=== PATIENT | male | born 1950 | race Caucasian/White ===

== ENCOUNTER 2018-08-07 10:38 | Inpatient (IN) ==
[2018-08-07 11:41] LABS: Basophils % 0.3 % (0.0-0.8); Eosinophils # 0.1 10*3/uL (0.0-0.87); Eosinophils % 0.7 % (0.00-10.9); Hematocrit 34.1 VOL% (42.0-52.0); Hemoglobin 11.1 GM/DL (14.0-18.0); Immature Granulocytes % 0.6 %; Immature Granulocytes Absolute 0.07 #; Lymphocytes # 0.4 10*3/uL (1.4-4.0); Lymphocytes % 3.7 % (21.2-54.2); Mean Corpuscular HGB Conc 32.6 GM/DL (32-36); Mean Corpuscular Hemoglobin 29 PG (27-34); Mean Corpuscular Volume 87.9 FL (87-102); Mean Platelet Volume 10.1 FL (9.6-12.0); Monocytes # 0.8 10*3/uL (0.11-0.8); Monocytes % 7.3 % (1.7-12.7); Neutrophils # 9.6 10*3/uL (1.4-7.4); Neutrophils % 87.4 % (38.7-73.9); Platelet Count 175 T/CUMM (130-400); Red Blood Count 3.88 MC/CUMM (3.8-5.5); Red Cell Distribution Width 15.1 % (9.3-17.3)
[2018-08-07 11:52] LABS: INR 2.4
[2018-08-07 11:53] LABS: PT Patient Result 24.9 SECS
[2018-08-07 12:01] LABS: Albumin 3.2 G/DL (3.4-5.0); Bilirubin,Total 0.5 MG/DL (0.2-1.0); Calcium 8.8 MG/DL (8.5-10.1); Osmolality,Calculated 278.2 MOS/KG (273-304); Potassium 4.3 MMOL/L (3.5-5.1); Total Protein 8.1 G/DL (6.4-8.3)
[2018-08-07 12:05] LABS: Band Neutrophils 1 % (0-10); Lymphocytes 5 % (20-55); Microcytosis Slight; Ovalocytes Slight; Segmented Neutrophils 84 % (50-85); Total Cells Counted 100
[2018-08-07 12:06] LABS: Platelet Estimate Normal
[2018-08-07] MEDS ORDERED: VANCOMYCIN INJ 1,000 MG in SODIUM CHLORIDE 0.9% 250 ML IV STA (12:48)
[2018-08-07] MEDS ORDERED: ONDANSETRON 4 MG/2 ML VIAL IV PRN (12:54)
[2018-08-07] MEDS ORDERED: ACETAMINOPHEN 325 MG TABLET PO PRN (12:54)
[2018-08-07] MEDS ORDERED: DEXTROSE 50% 25 GM/50 ML VIAL IV PRN (12:54)
[2018-08-07] MEDS ORDERED: GLUCAGON 1 MG VIAL IM PRN (12:54)
[2018-08-07] MEDS: PIPERACILLIN/TAZOBACTAM 3,375 MG in SODIUM CHLORIDE 0.9% 100 ML IV SCH ×2 (15:03→23:59)
[2018-08-07] MEDS ORDERED: WARFARIN 5 MG TABLET PO SCH ×2 (15:30→18:00)
[2018-08-07] MEDS: INSULIN LISPRO 100 UNIT/ML SUBCUT SCH ×2 (16:19→20:55)
[2018-08-07] MEDS: CILOSTAZOL 50 MG TABLET PO SCH (20:53)
[2018-08-07] MEDS: CARVEDILOL 25 MG TABLET PO SCH (20:53)
[2018-08-07] MEDS: VANCOMYCIN INJ 1,750 MG in SODIUM CHLORIDE 0.9% 500 ML IV SCH (20:54)
[2018-08-07] MEDS: ROSUVASTATIN 20 MG TABLET PO SCH (20:58)
[2018-08-08 06:05] LABS: Basophils % 0.3 % (0.0-0.8); Eosinophils # 0.2 10*3/uL (0.0-0.87); Eosinophils % 2.2 % (0.00-10.9); Hematocrit 29.7 VOL% (42.0-52.0); Hemoglobin 9.6 GM/DL (14.0-18.0); Immature Granulocytes % 0.2 %; Immature Granulocytes Absolute 0.02 #; Lymphocytes # 0.6 10*3/uL (1.4-4.0); Lymphocytes % 6.5 % (21.2-54.2); Mean Corpuscular HGB Conc 32.3 GM/DL (32-36); Mean Corpuscular Hemoglobin 28 PG (27-34); Mean Corpuscular Volume 87.9 FL (87-102); Mean Platelet Volume 10.6 FL (9.6-12.0); Monocytes # 0.9 10*3/uL (0.11-0.8); Monocytes % 10.2 % (1.7-12.7); Neutrophils % 80.6 % (38.7-73.9); Platelet Count 170 T/CUMM (130-400); Red Blood Count 3.38 MC/CUMM (3.8-5.5); Red Cell Distribution Width 14.9 % (9.3-17.3); White Blood Count 8.7 T/CUMM (4-12)
[2018-08-08 06:23] LABS: INR 2.2
[2018-08-08 06:24] LABS: PT Patient Result 22.9 SECS
[2018-08-08] MEDS: LEVOTHYROXINE 75 MCG TABLET PO SCH (06:26)
[2018-08-08] MEDS: PIPERACILLIN/TAZOBACTAM 3,375 MG in SODIUM CHLORIDE 0.9% 100 ML IV SCH ×3 (06:27→22:58)
[2018-08-08 06:28] LABS: Calcium 8.6 MG/DL (8.5-10.1); Osmolality,Calculated 282.8 MOS/KG (273-304); Potassium 4.3 MMOL/L (3.5-5.1); Risk Ratio 2.87
[2018-08-08] MEDS: PANTOPRAZOLE 40 MG TABLET PO SCH (08:12)
[2018-08-08] MEDS: ASPIRIN EC 81 MG TABLET PO SCH (08:12)
[2018-08-08] MEDS: CILOSTAZOL 50 MG TABLET PO SCH (08:12)
[2018-08-08] MEDS: CARVEDILOL 25 MG TABLET PO SCH ×2 (08:12→20:18)
[2018-08-08] MEDS: INSULIN LISPRO 100 UNIT/ML SUBCUT SCH ×4 (08:13→20:18)
[2018-08-08] MEDS ORDERED: RAMIPRIL 5 MG CAPSULE PO SCH (09:00)
[2018-08-08] MEDS ORDERED: PHYTONADIONE 5 MG/5 ML ORAL.SYR PO ONE (12:51)
[2018-08-08] MEDS: SODIUM CHLORIDE 0.45% 1,000 ML IV SCH (14:25)
[2018-08-08] MEDS: ROSUVASTATIN 20 MG TABLET PO SCH (20:18)
[2018-08-08] MEDS: VANCOMYCIN INJ 1,750 MG in SODIUM CHLORIDE 0.9% 500 ML IV SCH (20:19)
[2018-08-09 04:52] LABS: Basophils % 0.5 % (0.0-0.8); Eosinophils # 0.3 10*3/uL (0.0-0.87); Eosinophils % 3.8 % (0.00-10.9); Hematocrit 29.3 VOL% (42.0-52.0); Hemoglobin 9.4 GM/DL (14.0-18.0); Immature Granulocytes % 0.5 %; Immature Granulocytes Absolute 0.04 #; Lymphocytes # 0.6 10*3/uL (1.4-4.0); Lymphocytes % 7.2 % (21.2-54.2); Mean Corpuscular HGB Conc 32.1 GM/DL (32-36); Mean Corpuscular Hemoglobin 28 PG (27-34); Mean Corpuscular Volume 87.7 FL (87-102); Mean Platelet Volume 10.2 FL (9.6-12.0); Monocytes # 0.7 10*3/uL (0.11-0.8); Monocytes % 8.1 % (1.7-12.7); Neutrophils # 6.7 10*3/uL (1.4-7.4); Neutrophils % 79.9 % (38.7-73.9); Platelet Count 168 T/CUMM (130-400); Red Blood Count 3.34 MC/CUMM (3.8-5.5); Red Cell Distribution Width 14.9 % (9.3-17.3); White Blood Count 8.4 T/CUMM (4-12)
[2018-08-09 04:56] LABS: INR 1.5; PT Patient Result 15.4 SECS
[2018-08-09 05:18] LABS: Calcium 8.5 MG/DL (8.5-10.1); Osmolality,Calculated 283.8 MOS/KG (273-304); Potassium 4.2 MMOL/L (3.5-5.1)
[2018-08-09] MEDS: LEVOTHYROXINE 75 MCG TABLET PO SCH (06:12)
[2018-08-09] MEDS: PIPERACILLIN/TAZOBACTAM 3,375 MG in SODIUM CHLORIDE 0.9% 100 ML IV SCH ×2 (06:14→14:53)
[2018-08-09] MEDS: INSULIN LISPRO 100 UNIT/ML SUBCUT SCH ×4 (07:42→20:38)
[2018-08-09] MEDS ORDERED: HYDROmorphone 2 MG/1 ML VIAL ONE ×2 (09:12→12:07)
[2018-08-09] MEDS ORDERED: MIDAZOLAM 2 MG/2 ML VIAL ONE (09:12)
[2018-08-09] MEDS ORDERED: LIDOCAINE 1% 20 ML VIAL ONE (09:12)
[2018-08-09] MEDS: PANTOPRAZOLE 40 MG TABLET PO SCH (09:31)
[2018-08-09] MEDS: CARVEDILOL 25 MG TABLET PO SCH ×2 (09:31→20:38)
[2018-08-09] MEDS: ASPIRIN EC 81 MG TABLET PO SCH (09:31)
[2018-08-09] MEDS ORDERED: HEPARIN 5,000 UNIT/1 ML VIAL ONE (09:51)
[2018-08-09] MEDS ORDERED: hydrALAZINE 20 MG/1 ML VIAL ONE ×2 (10:22→12:07)
[2018-08-09] MEDS ORDERED: ASPIRIN CHEW 81 MG TABLET PO ONE (10:33)
[2018-08-09] MEDS ORDERED: TICAGRELOR 90 MG TABLET ONE (11:04)
[2018-08-09] MEDS ORDERED: NITROGLYCERIN SL 0.4 MG TABLET SL PRN (11:31)
[2018-08-09] MEDS ORDERED: NITROGLYCERIN 2% OINT 1 INCH/GM PACK TOP ONE ×2 (12:07→12:14)
[2018-08-09] MEDS ORDERED: HYDROmorphone 2 MG/1 ML VIAL IV ONE (12:14)
[2018-08-09] MEDS ORDERED: hydrALAZINE 20 MG/1 ML VIAL IV ONE (12:14)
[2018-08-09] MEDS: SODIUM CHLORIDE 0.45% 1,000 ML IV SCH (12:22)
[2018-08-09] MEDS ORDERED: diphenhydrAMINE CAP 25 MG CAPSULE PO PRN (16:01)
[2018-08-09] MEDS: ROSUVASTATIN 20 MG TABLET PO SCH (20:37)
[2018-08-09] MEDS: TICAGRELOR 90 MG TABLET PO SCH (20:37)
[2018-08-09] MEDS: VANCOMYCIN INJ 1,750 MG in SODIUM CHLORIDE 0.9% 500 ML IV SCH (20:41)
[2018-08-10] MEDS: SODIUM CHLORIDE 0.45% 1,000 ML IV SCH ×2 (00:53→05:15)
[2018-08-10] MEDS: PIPERACILLIN/TAZOBACTAM 3,375 MG in SODIUM CHLORIDE 0.9% 100 ML IV SCH ×3 (01:15→17:20)
[2018-08-10 04:46] LABS: Basophils % 0.2 % (0.0-0.8); Eosinophils # 0.3 10*3/uL (0.0-0.87); Eosinophils % 3.3 % (0.00-10.9); Hematocrit 28.2 VOL% (42.0-52.0); Hemoglobin 8.9 GM/DL (14.0-18.0); Immature Granulocytes % 0.5 %; Immature Granulocytes Absolute 0.04 #; Lymphocytes # 0.5 10*3/uL (1.4-4.0); Lymphocytes % 6.2 % (21.2-54.2); Mean Corpuscular HGB Conc 31.6 GM/DL (32-36); Mean Corpuscular Hemoglobin 28 PG (27-34); Monocytes # 0.7 10*3/uL (0.11-0.8); Neutrophils # 6.9 10*3/uL (1.4-7.4); Neutrophils % 81.8 % (38.7-73.9); Platelet Count 172 T/CUMM (130-400); Red Blood Count 3.17 MC/CUMM (3.8-5.5); Red Cell Distribution Width 14.7 % (9.3-17.3); White Blood Count 8.4 T/CUMM (4-12)
[2018-08-10 05:06] LABS: Calcium 8.3 MG/DL (8.5-10.1); Osmolality,Calculated 283.7 MOS/KG (273-304); Potassium 4.3 MMOL/L (3.5-5.1)
[2018-08-10] MEDS: LEVOTHYROXINE 75 MCG TABLET PO SCH (06:42)
[2018-08-10] MEDS: INSULIN LISPRO 100 UNIT/ML SUBCUT SCH ×4 (08:18→21:01)
[2018-08-10] MEDS: CARVEDILOL 25 MG TABLET PO SCH ×2 (08:19→20:58)
[2018-08-10] MEDS: ASPIRIN EC 81 MG TABLET PO SCH (09:20)
[2018-08-10] MEDS: TICAGRELOR 90 MG TABLET PO SCH ×2 (09:20→20:58)
[2018-08-10] MEDS: PANTOPRAZOLE 40 MG TABLET PO SCH (09:23)
[2018-08-10] MEDS ORDERED: BUPIVACAINE 0.5% 50 ML VIAL ONE (11:40)
[2018-08-10] MEDS ORDERED: HYDROmorphone 2 MG/1 ML VIAL IV PRN (12:48)
[2018-08-10] MEDS ORDERED: PROPOFOL 200 MG/20 ML VIAL IV ONE (12:53)
[2018-08-10] MEDS ORDERED: ETOMIDATE 40 MG/20 ML VIAL IV ONE (12:54)
[2018-08-10] MEDS ORDERED: SEVOFLURANE 1 UNIT/15 MINUTE INH ONE (12:54)
[2018-08-10] MEDS ORDERED: fentaNYL 100 MCG/2 ML VIAL ONE (12:54)
[2018-08-10] MEDS ORDERED: ONDANSETRON 4 MG/2 ML VIAL ONE (12:54)
[2018-08-10] MEDS: ROSUVASTATIN 20 MG TABLET PO SCH (20:58)
[2018-08-10] MEDS: INSULIN GLARGINE 100 UNIT/ML SUBCUT SCH (20:58)
[2018-08-10] MEDS: VANCOMYCIN INJ 1,750 MG in SODIUM CHLORIDE 0.9% 500 ML IV SCH (21:25)
[2018-08-11] MEDS: SODIUM CHLORIDE 0.45% 1,000 ML IV SCH ×2 (02:34→10:36)
[2018-08-11] MEDS: PIPERACILLIN/TAZOBACTAM 3,375 MG in SODIUM CHLORIDE 0.9% 100 ML IV SCH ×3 (02:35→18:45)
[2018-08-11 05:07] LABS: Basophils # 0.1 10*3/uL (0.0-0.2); Basophils % 0.6 % (0.0-0.8); Eosinophils # 0.4 10*3/uL (0.0-0.87); Eosinophils % 4.2 % (0.00-10.9); Hemoglobin 8.8 GM/DL (14.0-18.0); Immature Granulocytes % 0.3 %; Immature Granulocytes Absolute 0.03 #; Lymphocytes # 0.7 10*3/uL (1.4-4.0); Lymphocytes % 7.3 % (21.2-54.2); Mean Corpuscular HGB Conc 31.4 GM/DL (32-36); Mean Corpuscular Hemoglobin 28 PG (27-34); Mean Corpuscular Volume 89.7 FL (87-102); Mean Platelet Volume 10.1 FL (9.6-12.0); Monocytes # 0.8 10*3/uL (0.11-0.8); Monocytes % 9.2 % (1.7-12.7); Neutrophils # 7.1 10*3/uL (1.4-7.4); Neutrophils % 78.4 % (38.7-73.9); Platelet Count 179 T/CUMM (130-400); Red Blood Count 3.12 MC/CUMM (3.8-5.5); Red Cell Distribution Width 14.6 % (9.3-17.3); White Blood Count 9.1 T/CUMM (4-12)
[2018-08-11 05:31] LABS: Calcium 8.1 MG/DL (8.5-10.1); Osmolality,Calculated 284.5 MOS/KG (273-304); Potassium 4.1 MMOL/L (3.5-5.1)
[2018-08-11 05:35] LABS: % Iron Saturation 25.5 % (18-50); Ferritin 1162.6 ng/ml (26-388)
[2018-08-11 05:44] LABS: INR 1.2
[2018-08-11 06:56] LABS: Sedimentation Rate-Westergren 122 MM/HR (0-20)
[2018-08-11] MEDS: LEVOTHYROXINE 75 MCG TABLET PO SCH (07:05)
[2018-08-11] MEDS ORDERED: ASPIRIN EC 81 MG TABLET PO SCH (09:00)
[2018-08-11 10:04] LABS: Folate 8.7 NG/ML (5.4-24.0); Vitamin B12 501 PG/ML (211-911)
[2018-08-11 10:16] LABS: Hemoglobin A1 (Alkaline) 97.7 % (96.5-98.5); Hemoglobin A2 (Alkaline) 2.3 % (1.5-3.5)
[2018-08-11] MEDS: TICAGRELOR 90 MG TABLET PO SCH ×2 (10:27→21:25)
[2018-08-11] MEDS: PANTOPRAZOLE 40 MG TABLET PO SCH (10:27)
[2018-08-11] MEDS: RAMIPRIL 2.5 MG CAPSULE PO SCH (10:27)
[2018-08-11] MEDS: CARVEDILOL 25 MG TABLET PO SCH ×2 (10:28→21:25)
[2018-08-11] MEDS: INSULIN LISPRO 100 UNIT/ML SUBCUT SCH ×4 (10:28→21:25)
[2018-08-11] MEDS: SODIUM HYPOCHLORITE 0.25% IRRIG 473 ML BOTTLE TOP SCH (10:28)
[2018-08-11] MEDS: VANCOMYCIN INJ 1,750 MG in SODIUM CHLORIDE 0.9% 500 ML IV SCH (16:32)
[2018-08-11] MEDS: ASPIRIN CHEW 81 MG TABLET PO SCH (16:32)
[2018-08-11] MEDS ORDERED: WARFARIN 7.5 MG TABLET PO SCH ×2 (18:00)
[2018-08-11] MEDS: INSULIN GLARGINE 100 UNIT/ML SUBCUT SCH (21:24)
[2018-08-11] MEDS: ROSUVASTATIN 20 MG TABLET PO SCH (21:25)
[2018-08-12] MEDS: PIPERACILLIN/TAZOBACTAM 3,375 MG in SODIUM CHLORIDE 0.9% 100 ML IV SCH ×3 (03:15→17:29)
[2018-08-12 05:49] LABS: Basophils # 0.1 10*3/uL (0.0-0.2); Basophils % 0.6 % (0.0-0.8); Eosinophils # 0.3 10*3/uL (0.0-0.87); Eosinophils % 4.3 % (0.00-10.9); Hematocrit 28.1 VOL% (42.0-52.0); Immature Granulocytes % 0.5 %; Immature Granulocytes Absolute 0.04 #; Lymphocytes # 0.5 10*3/uL (1.4-4.0); Mean Corpuscular Hemoglobin 28 PG (27-34); Mean Corpuscular Volume 88.1 FL (87-102); Monocytes # 0.7 10*3/uL (0.11-0.8); Monocytes % 9.1 % (1.7-12.7); Neutrophils % 78.5 % (38.7-73.9); Platelet Count 184 T/CUMM (130-400); Red Blood Count 3.19 MC/CUMM (3.8-5.5); Red Cell Distribution Width 14.6 % (9.3-17.3); White Blood Count 7.7 T/CUMM (4-12)
[2018-08-12 06:04] LABS: Calcium 8.3 MG/DL (8.5-10.1); Osmolality,Calculated 284.4 MOS/KG (273-304); Potassium 3.7 MMOL/L (3.5-5.1)
[2018-08-12 06:05] LABS: INR 1.2; PT Patient Result 12.7 SECS
[2018-08-12] MEDS: LEVOTHYROXINE 75 MCG TABLET PO SCH (06:44)
[2018-08-12] MEDS: ASPIRIN CHEW 81 MG TABLET PO SCH (09:48)
[2018-08-12] MEDS: PANTOPRAZOLE 40 MG TABLET PO SCH (09:48)
[2018-08-12] MEDS: CARVEDILOL 25 MG TABLET PO SCH ×2 (09:48→21:02)
[2018-08-12] MEDS: VANCOMYCIN INJ 1,750 MG in SODIUM CHLORIDE 0.9% 500 ML IV SCH (09:48)
[2018-08-12] MEDS: RAMIPRIL 2.5 MG CAPSULE PO SCH (09:48)
[2018-08-12] MEDS: TICAGRELOR 90 MG TABLET PO SCH ×2 (09:48→21:02)
[2018-08-12] MEDS: INSULIN LISPRO 100 UNIT/ML SUBCUT SCH ×4 (09:49→23:41)
[2018-08-12] MEDS: SODIUM HYPOCHLORITE 0.25% IRRIG 473 ML BOTTLE TOP SCH (09:49)
[2018-08-12] MEDS: WARFARIN 5 MG TABLET PO SCH (17:37)
[2018-08-12] MEDS: ROSUVASTATIN 20 MG TABLET PO SCH (21:02)
[2018-08-12] MEDS: INSULIN GLARGINE 100 UNIT/ML SUBCUT SCH (23:41)
[2018-08-13] MEDS: PIPERACILLIN/TAZOBACTAM 3,375 MG in SODIUM CHLORIDE 0.9% 100 ML IV SCH ×3 (03:24→17:46)
[2018-08-13 05:18] LABS: INR 1.4; PT Patient Result 14.2 SECS
[2018-08-13 05:25] LABS: Calcium 8.5 MG/DL (8.5-10.1); Osmolality,Calculated 285.3 MOS/KG (273-304); Potassium 3.7 MMOL/L (3.5-5.1)
[2018-08-13] MEDS: VANCOMYCIN INJ 1,750 MG in SODIUM CHLORIDE 0.9% 500 ML IV SCH ×2 (05:43→23:26)
[2018-08-13] MEDS: LEVOTHYROXINE 75 MCG TABLET PO SCH (06:12)
[2018-08-13] MEDS: INSULIN LISPRO 100 UNIT/ML SUBCUT SCH ×4 (07:37→21:17)
[2018-08-13] MEDS: RAMIPRIL 2.5 MG CAPSULE PO SCH (08:36)
[2018-08-13] MEDS: PANTOPRAZOLE 40 MG TABLET PO SCH (08:36)
[2018-08-13] MEDS: CARVEDILOL 25 MG TABLET PO SCH ×2 (08:36→21:16)
[2018-08-13] MEDS: TICAGRELOR 90 MG TABLET PO SCH ×2 (08:37→21:16)
[2018-08-13] MEDS: SODIUM HYPOCHLORITE 0.25% IRRIG 473 ML BOTTLE TOP SCH (11:19)
[2018-08-13] MEDS: WARFARIN 5 MG TABLET PO SCH (17:06)
[2018-08-13] MEDS: ROSUVASTATIN 20 MG TABLET PO SCH (21:17)
[2018-08-13] MEDS: INSULIN GLARGINE 100 UNIT/ML SUBCUT SCH (21:17)
[2018-08-14] MEDS: PIPERACILLIN/TAZOBACTAM 3,375 MG in SODIUM CHLORIDE 0.9% 100 ML IV SCH ×3 (03:08→17:40)
[2018-08-14 05:37] LABS: INR 1.4; PT Patient Result 15.1 SECS
[2018-08-14 05:56] LABS: Calcium 8.6 MG/DL (8.5-10.1); Osmolality,Calculated 280.5 MOS/KG (273-304); Potassium 3.6 MMOL/L (3.5-5.1)
[2018-08-14] MEDS: LEVOTHYROXINE 75 MCG TABLET PO SCH (06:18)
[2018-08-14] MEDS: INSULIN LISPRO 100 UNIT/ML SUBCUT SCH ×4 (08:05→20:40)
[2018-08-14] MEDS: PANTOPRAZOLE 40 MG TABLET PO SCH (08:43)
[2018-08-14] MEDS: TICAGRELOR 90 MG TABLET PO SCH ×2 (08:43→20:38)
[2018-08-14] MEDS: CARVEDILOL 25 MG TABLET PO SCH ×2 (08:43→20:38)
[2018-08-14] MEDS: RAMIPRIL 2.5 MG CAPSULE PO SCH (08:44)
[2018-08-14] MEDS: SODIUM HYPOCHLORITE 0.25% IRRIG 473 ML BOTTLE TOP SCH (08:44)
[2018-08-14] MEDS: COLLAGENASE OINT 30 GM TUBE TOP SCH (10:00)
[2018-08-14] MEDS: WARFARIN 5 MG TABLET PO SCH (17:59)
[2018-08-14] MEDS: ROSUVASTATIN 20 MG TABLET PO SCH (20:38)
[2018-08-14] MEDS: INSULIN GLARGINE 100 UNIT/ML SUBCUT SCH (20:40)
[2018-08-15] MEDS: PIPERACILLIN/TAZOBACTAM 3,375 MG in SODIUM CHLORIDE 0.9% 100 ML IV SCH ×3 (02:49→13:06)
[2018-08-15] MEDS: LEVOTHYROXINE 75 MCG TABLET PO SCH (06:31)
[2018-08-15] MEDS: INSULIN LISPRO 100 UNIT/ML SUBCUT SCH ×2 (08:20→13:06)
[2018-08-15] MEDS ORDERED: VANCOMYCIN INJ 1,750 MG in SODIUM CHLORIDE 0.9% 500 ML IV SCH (09:00)
[2018-08-15] MEDS: RAMIPRIL 2.5 MG CAPSULE PO SCH (09:14)
[2018-08-15] MEDS: PANTOPRAZOLE 40 MG TABLET PO SCH (09:15)
[2018-08-15] MEDS: TICAGRELOR 90 MG TABLET PO SCH (09:15)
[2018-08-15] MEDS: CARVEDILOL 25 MG TABLET PO SCH (09:15)
[2018-08-15 12:15] VITALS: BP 151/88
[2018-08-15] MEDS: COLLAGENASE OINT 30 GM TUBE TOP SCH (12:30)
[2018-08-15] MEDS: SODIUM HYPOCHLORITE 0.25% IRRIG 473 ML BOTTLE TOP SCH (12:30)
== END 2018-08-15 13:45 | disposition home health service (06) | DRG 240 ==
LOC: UNDODISIN → N.ED 10:38 → SUATTDRO 12:54 → N.EDINP 12:54 → N.3E 13:45
PROVIDERS: ADMIT Hospitalist; ATTEND Internal Medicine

== ENCOUNTER 2018-08-16 08:54 | Inpatient (IN) ==
[2018-08-16] MEDS ORDERED: SODIUM CHLORIDE 0.9% 1,000 ML IV STA (09:31)
[2018-08-16 10:24] LABS: Basophils # 0.1 10*3/uL (0.0-0.2); Basophils % 0.5 % (0.0-0.8); Eosinophils # 0.1 10*3/uL (0.0-0.87); Eosinophils % 1.1 % (0.00-10.9); Hematocrit 31.4 VOL% (42.0-52.0); Hemoglobin 9.9 GM/DL (14.0-18.0); Immature Granulocytes % 0.6 %; Immature Granulocytes Absolute 0.06 #; Lymphocytes # 0.5 10*3/uL (1.4-4.0); Lymphocytes % 4.3 % (21.2-54.2); Mean Corpuscular HGB Conc 31.5 GM/DL (32-36); Mean Corpuscular Hemoglobin 28 PG (27-34); Mean Corpuscular Volume 89.5 FL (87-102); Mean Platelet Volume 10.3 FL (9.6-12.0); Monocytes # 0.7 10*3/uL (0.11-0.8); Monocytes % 6.1 % (1.7-12.7); Neutrophils # 9.5 10*3/uL (1.4-7.4); Neutrophils % 87.4 % (38.7-73.9); Platelet Count 187 T/CUMM (130-400); Red Blood Count 3.51 MC/CUMM (3.8-5.5); Red Cell Distribution Width 14.4 % (9.3-17.3); White Blood Count 10.9 T/CUMM (4-12)
[2018-08-16 10:41] LABS: Calcium 8.6 MG/DL (8.5-10.1); Osmolality,Calculated 291.4 MOS/KG (273-304)
[2018-08-16 10:44] LABS: Lactic Acid 1.6 MMOL/L (0.4-2.0)
[2018-08-16 10:55] LABS: Lymphocytes 3 % (20-55); Segmented Neutrophils 95 % (50-85); Total Cells Counted 100
[2018-08-16 10:56] LABS: Hypochromasia 1+; Microcytosis 1+; Ovalocytes Slight; Platelet Estimate Adequate
[2018-08-16] MEDS ORDERED: GLUCAGON 1 MG VIAL IM PRN ×2 (14:43)
[2018-08-16] MEDS ORDERED: DEXTROSE 50% 25 GM/50 ML VIAL IV PRN ×2 (14:43)
[2018-08-16] MEDS: PIPERACILLIN/TAZOBACTAM 3,375 MG in SODIUM CHLORIDE 0.9% 100 ML IV SCH (18:26)
[2018-08-16] MEDS: INSULIN REGULAR 100 UNIT/ML SUBCUT SCH ×2 (18:31→21:31)
[2018-08-16 18:53] LABS: INR 1.5; PT Patient Result 16.1 SECS
[2018-08-16] MEDS ORDERED: CARVEDILOL 12.5 MG TABLET PO SCH (21:00)
[2018-08-16] MEDS: CILOSTAZOL 50 MG TABLET PO SCH (21:29)
[2018-08-16] MEDS: INSULIN GLARGINE 100 UNIT/ML SUBCUT SCH (21:29)
[2018-08-16] MEDS: TICAGRELOR 90 MG TABLET PO SCH (21:29)
[2018-08-16] MEDS: WARFARIN 5 MG TABLET PO SCH (21:30)
[2018-08-16] MEDS: FERROUS SULFATE 325 MG TABLET PO SCH (21:30)
[2018-08-16] MEDS: CARVEDILOL 12.5 MG TABLET PO SCH (21:30)
[2018-08-16] MEDS: ROSUVASTATIN 20 MG TABLET PO SCH (21:30)
[2018-08-17] MEDS: PIPERACILLIN/TAZOBACTAM 3,375 MG in SODIUM CHLORIDE 0.9% 100 ML IV SCH ×3 (00:49→17:28)
[2018-08-17 05:48] LABS: Basophils # 0.1 10*3/uL (0.0-0.2); Basophils % 0.5 % (0.0-0.8); Eosinophils # 0.1 10*3/uL (0.0-0.87); Eosinophils % 1.4 % (0.00-10.9); Hematocrit 26.9 VOL% (42.0-52.0); Hemoglobin 8.7 GM/DL (14.0-18.0); Lymphocytes # 0.7 10*3/uL (1.4-4.0); Lymphocytes % 6.5 % (21.2-54.2); Mean Corpuscular HGB Conc 32.3 GM/DL (32-36); Mean Corpuscular Hemoglobin 29 PG (27-34); Mean Corpuscular Volume 89.1 FL (87-102); Mean Platelet Volume 10.4 FL (9.6-12.0); Monocytes # 0.8 10*3/uL (0.11-0.8); Monocytes % 7.5 % (1.7-12.7); Neutrophils # 8.3 10*3/uL (1.4-7.4); Neutrophils % 83.1 % (38.7-73.9); Platelet Count 173 T/CUMM (130-400); Red Blood Count 3.02 MC/CUMM (3.8-5.5); Red Cell Distribution Width 14.5 % (9.3-17.3)
[2018-08-17 05:58] LABS: INR 1.7; PT Patient Result 17.6 SECS
[2018-08-17 06:06] LABS: Albumin 2.7 G/DL (3.4-5.0); Bilirubin,Total 0.4 MG/DL (0.2-1.0); Calcium 8.4 MG/DL (8.5-10.1); Osmolality,Calculated 287.4 MOS/KG (273-304); Potassium 3.5 MMOL/L (3.5-5.1); Total Protein 6.6 G/DL (6.4-8.3)
[2018-08-17] MEDS: TICAGRELOR 90 MG TABLET PO SCH ×2 (09:54→22:29)
[2018-08-17] MEDS: RAMIPRIL 5 MG CAPSULE PO SCH (09:54)
[2018-08-17] MEDS: FERROUS SULFATE 325 MG TABLET PO SCH ×2 (09:54→22:30)
[2018-08-17] MEDS: ALLOPURINOL 100 MG TABLET PO SCH (09:54)
[2018-08-17] MEDS: CILOSTAZOL 50 MG TABLET PO SCH ×2 (09:54→22:29)
[2018-08-17] MEDS: CARVEDILOL 12.5 MG TABLET PO SCH ×2 (09:54→22:29)
[2018-08-17] MEDS: INSULIN REGULAR 100 UNIT/ML SUBCUT SCH ×4 (09:55→22:30)
[2018-08-17] MEDS: SODIUM HYPOCHLORITE 0.25% IRRIG 473 ML BOTTLE TOP SCH (14:28)
[2018-08-17] MEDS: COLLAGENASE OINT 30 GM TUBE TOP SCH (14:28)
[2018-08-17] MEDS: SODIUM CHLORIDE 0.45% 1,000 ML IV SCH (14:28)
[2018-08-17] MEDS ORDERED: ENOXAPARIN 120 MG/0.8 ML SYRINGE SUBCUT ONE (14:56)
[2018-08-17 16:55] LABS: Amorphous Crystals,Urine Occasional /HPF (Few); Apearance,Urine CLOUDY (Clear); Bacteria,Urine Occasional /HPF (Few); Bilirubin,Urine Negative (Negative); Blood, Urine Moderate mg/dL (Negative); Glucose,Urine (UA) Negative (Negative); Ketones,Urine Negative (Negative); Mucus,Urine Occasional /LPF (Occasional); Nitrite,Urine Negative (Negative); Protein,Urine 30 MG/DL; RBC,Urine <1 /HPF (0-4); Urine Color Yellow (Yellow); Urine Specific Gravity 1.014 (1.001-1.035); Urine Urobilinogen < 2.0 EU/DL (0.2-1.0); WBC,Urine 4 /HPF (0-6)
[2018-08-17] MEDS: WARFARIN 5 MG TABLET PO SCH (17:28)
[2018-08-17] MEDS ORDERED: WARFARIN 2.5 MG TABLET PO ONE (18:00)
[2018-08-17] MEDS: ROSUVASTATIN 20 MG TABLET PO SCH (22:29)
[2018-08-17] MEDS: INSULIN GLARGINE 100 UNIT/ML SUBCUT SCH (22:30)
[2018-08-18] MEDS: PIPERACILLIN/TAZOBACTAM 3,375 MG in SODIUM CHLORIDE 0.9% 100 ML IV SCH ×3 (00:47→17:10)
[2018-08-18 02:39] LABS: Basophils # 0.1 10*3/uL (0.0-0.2); Basophils % 0.7 % (0.0-0.8); Eosinophils # 0.2 10*3/uL (0.0-0.87); Eosinophils % 2.6 % (0.00-10.9); Hematocrit 25.5 VOL% (42.0-52.0); Hemoglobin 8.3 GM/DL (14.0-18.0); Immature Granulocytes % 0.7 %; Immature Granulocytes Absolute 0.06 #; Lymphocytes # 0.6 10*3/uL (1.4-4.0); Lymphocytes % 7.5 % (21.2-54.2); Mean Corpuscular HGB Conc 32.5 GM/DL (32-36); Mean Corpuscular Hemoglobin 29 PG (27-34); Mean Corpuscular Volume 89.2 FL (87-102); Mean Platelet Volume 10.6 FL (9.6-12.0); Monocytes # 0.8 10*3/uL (0.11-0.8); Monocytes % 8.8 % (1.7-12.7); Neutrophils # 6.8 10*3/uL (1.4-7.4); Neutrophils % 79.7 % (38.7-73.9); Platelet Count 174 T/CUMM (130-400); Red Blood Count 2.86 MC/CUMM (3.8-5.5); Red Cell Distribution Width 14.4 % (9.3-17.3); White Blood Count 8.5 T/CUMM (4-12)
[2018-08-18 02:48] LABS: PT Patient Result 20.5 SECS
[2018-08-18 03:15] LABS: Calcium 8.2 MG/DL (8.5-10.1); Osmolality,Calculated 286.4 MOS/KG (273-304); Potassium 3.3 MMOL/L (3.5-5.1)
[2018-08-18] MEDS: INSULIN REGULAR 100 UNIT/ML SUBCUT SCH ×4 (07:30→22:01)
[2018-08-18] MEDS ORDERED: POTASSIUM CHLORIDE 20 MEQ TABLET PO ONE (08:00)
[2018-08-18] MEDS: TICAGRELOR 90 MG TABLET PO SCH ×2 (09:32→22:00)
[2018-08-18] MEDS: ALLOPURINOL 100 MG TABLET PO SCH (09:32)
[2018-08-18] MEDS: CILOSTAZOL 50 MG TABLET PO SCH ×2 (09:32→21:59)
[2018-08-18] MEDS: FERROUS SULFATE 325 MG TABLET PO SCH ×2 (09:33→22:00)
[2018-08-18] MEDS: RAMIPRIL 5 MG CAPSULE PO SCH (09:33)
[2018-08-18] MEDS: CARVEDILOL 12.5 MG TABLET PO SCH ×2 (09:33→21:59)
[2018-08-18] MEDS: COLLAGENASE OINT 30 GM TUBE TOP SCH (11:45)
[2018-08-18] MEDS: SODIUM HYPOCHLORITE 0.25% IRRIG 473 ML BOTTLE TOP SCH (11:45)
[2018-08-18] MEDS: ZINC OXIDE PASTE 113 GM TUBE TOP SCH (13:45)
[2018-08-18] MEDS ORDERED: FLUDROCORTISONE 0.1 MG TABLET PO SCH (14:00)
[2018-08-18] MEDS: POTASSIUM CHLORIDE 20 MEQ TABLET PO SCH ×2 (14:47→17:09)
[2018-08-18] MEDS ORDERED: COSYNTROPIN 0.25 MG VIAL IM ONE (16:18)
[2018-08-18] MEDS ORDERED: WARFARIN 5 MG TABLET PO SCH (18:00)
[2018-08-18] MEDS: SODIUM CHLORIDE 0.45% 1,000 ML IV SCH (18:30)
[2018-08-18] MEDS: ROSUVASTATIN 20 MG TABLET PO SCH (22:00)
[2018-08-18] MEDS: INSULIN GLARGINE 100 UNIT/ML SUBCUT SCH (22:00)
[2018-08-19] MEDS: PIPERACILLIN/TAZOBACTAM 3,375 MG in SODIUM CHLORIDE 0.9% 100 ML IV SCH ×2 (01:50→09:29)
[2018-08-19 05:50] LABS: Calcium 8.5 MG/DL (8.5-10.1); Osmolality,Calculated 291.1 MOS/KG (273-304); Potassium 3.8 MMOL/L (3.5-5.1)
[2018-08-19 05:52] LABS: INR 2.3
[2018-08-19] MEDS ORDERED: COSYNTROPIN 0.25 MG VIAL IM ONE (06:00)
[2018-08-19 06:24] LABS: PT Patient Result 23.2 SECS
[2018-08-19] MEDS: TICAGRELOR 90 MG TABLET PO SCH (09:28)
[2018-08-19] MEDS: CARVEDILOL 12.5 MG TABLET PO SCH (09:28)
[2018-08-19] MEDS: CILOSTAZOL 50 MG TABLET PO SCH (09:28)
[2018-08-19] MEDS: FERROUS SULFATE 325 MG TABLET PO SCH (09:28)
[2018-08-19] MEDS: ALLOPURINOL 100 MG TABLET PO SCH (09:28)
[2018-08-19] MEDS: INSULIN REGULAR 100 UNIT/ML SUBCUT SCH ×2 (09:32→14:25)
[2018-08-19] MEDS: SODIUM HYPOCHLORITE 0.25% IRRIG 473 ML BOTTLE TOP SCH (11:00)
[2018-08-19] MEDS: COLLAGENASE OINT 30 GM TUBE TOP SCH (11:00)
[2018-08-19] MEDS: ZINC OXIDE PASTE 113 GM TUBE TOP SCH ×2 (11:02)
[2018-08-19 13:07] VITALS: BP 119/58
== END 2018-08-19 13:59 | disposition swing bed (61) | DRG 312 ==
LOC: EDUNIT# → EDBD → N.ED 08:54 → OBSVTOIN 12:31 → N.EDINP 12:31 → SUATTDRO 12:31 → INTOOBSV 12:31 → N.2W 15:53 → N.TELES 17:55
PROVIDERS: ADMIT Internal Medicine; ATTEND Hospitalist

== ENCOUNTER 2019-05-14 07:49 | Inpatient (IN) ==
[2019-05-09 15:40] LABS: Basophils % 0.6 % (0.0-0.8); Eosinophils # 0.2 10*3/uL (0.0-0.87); Eosinophils % 3.7 % (0.00-10.9); Hemoglobin 9.7 GM/DL (14.0-18.0); Immature Granulocytes % 0.2 %; Immature Granulocytes Absolute 0.01 #; Lymphocytes # 0.6 10*3/uL (1.4-4.0); Lymphocytes % 11.4 % (21.2-54.2); Mean Corpuscular HGB Conc 31.3 GM/DL (32-36); Mean Platelet Volume 9.9 FL (9.6-12.0); Monocytes % 8.7 % (1.7-12.7); Neutrophils % 75.4 % (38.7-73.9); Platelet Count 127 T/CUMM (130-400); Red Blood Count 3.37 MC/CUMM (3.8-5.5); Red Cell Distribution Width 16.4 % (9.3-17.3); White Blood Count 4.9 T/CUMM (4-12)
[2019-05-09 15:57] LABS: INR 2.1
[2019-05-09 16:03] LABS: PT Patient Result 22.7 SECS
[2019-05-09 16:04] LABS: Alanine Aminotransferase 20 U/L (16-61); Albumin 3.7 G/DL (3.4-5.0); Alkaline Phosphatase 67 U/L (45-117); Aspartate Amino Transferase 17 U/L (0-37); Bilirubin,Total < 0.39 MG/DL (0.2-1.0); Blood Urea Nitrogen 46 MG/DL (7-18); Calcium 8.7 MG/DL (8.5-10.1); Glucose 92 MG/DL (74-106); Osmolality,Calculated 288.5 MOS/KG (273-304); Total Protein 7.4 G/DL (6.4-8.3)
[~2019-05-14 07:49] MED LIST: DIAZEPAM 5 MG TABLET PO ONE; FAMOTIDINE 20 MG TABLET PO ONE; VANCOMYCIN INJ 1,000 MG in SODIUM CHLORIDE 0.9% 250 ML IV ONE
[2019-05-14 08:42] LABS: INR 1.4; PT Patient Result 14.8 SECS
[2019-05-14] MEDS ORDERED: VANCOMYCIN 1,000 MG VIAL ONE (08:45)
[2019-05-14] MEDS ORDERED: DIAZEPAM 5 MG TABLET ONE (08:46)
[2019-05-14] MEDS ORDERED: FAMOTIDINE 20 MG TABLET ONE (08:46)
[2019-05-14] MEDS: SODIUM CHLORIDE 0.9% 1,000 ML IV SCH (09:15)
[2019-05-14] MEDS ORDERED: VANCOMYCIN 500 MG VIAL ONE (09:27)
[2019-05-14] MEDS ORDERED: LIDOCAINE 1% 20 ML VIAL ONE (09:27)
[2019-05-14] MEDS ORDERED: ACETAMINOPHEN 325 MG TABLET PO PRN (10:37)
[2019-05-14] MEDS ORDERED: HYDROmorphone 2 MG/1 ML VIAL IV PRN ×2 (10:37)
[2019-05-14] MEDS ORDERED: ONDANSETRON 4 MG/2 ML VIAL IV PRN (10:37)
[2019-05-14] MEDS ORDERED: DEXTROSE 10% 25 GM/250 ML BAG IV PRN (10:44)
[2019-05-14] MEDS ORDERED: SEVOFLURANE 1 UNIT/15 MINUTE INH ONE (10:44)
[2019-05-14] MEDS ORDERED: PROPOFOL 200 MG/20 ML VIAL IV ONE (10:44)
[2019-05-14] MEDS ORDERED: MIDAZOLAM 2 MG/2 ML VIAL ONE (10:44)
[2019-05-14] MEDS ORDERED: fentaNYL 100 MCG/2 ML VIAL ONE (10:44)
[2019-05-14] MEDS ORDERED: GLUCAGON 1 MG VIAL IM PRN (10:44)
[2019-05-14] MEDS ORDERED: ACETAMINOPHEN 1,000 MG/100 ML VIAL IV ONE (10:45)
[2019-05-14] MEDS ORDERED: PHENYLEPHRINE 1 MG/10 ML SYRINGE IV ONE (10:45)
[2019-05-14] MEDS ORDERED: ePHEDrine 50 MG/ML AMP ONE (10:45)
[2019-05-14] MEDS: INSULIN REGULAR 100 UNIT/ML SUBCUT SCH ×3 (13:40→21:20)
[2019-05-14] MEDS: METOPROLOL TARTRATE 25 MG TABLET PO SCH ×2 (14:44→20:57)
[2019-05-14] MEDS ORDERED: RIVAROXABAN 20 MG TABLET PO SCH (17:00)
[2019-05-14] MEDS: FERROUS SULFATE 325 MG TABLET PO SCH (20:58)
[2019-05-14] MEDS ORDERED: INSULIN GLARGINE 100 UNIT/ML SUBCUT SCH (21:00)
[2019-05-14] MEDS ORDERED: ROSUVASTATIN 20 MG TABLET PO SCH (21:00)
[2019-05-14] MEDS ORDERED: VANCOMYCIN INJ 1,750 MG in SODIUM CHLORIDE 0.9% 500 ML IV ONE (22:00)
[2019-05-15 05:40] LABS: Basophils % 0.8 % (0.0-0.8); Eosinophils # 0.2 10*3/uL (0.0-0.87); Eosinophils % 3.7 % (0.00-10.9); Hematocrit 29.2 VOL% (42.0-52.0); Hemoglobin 8.9 GM/DL (14.0-18.0); Immature Granulocytes % 0.2 %; Immature Granulocytes Absolute 0.01 #; Lymphocytes # 0.5 10*3/uL (1.4-4.0); Lymphocytes % 10.3 % (21.2-54.2); Mean Corpuscular HGB Conc 30.5 GM/DL (32-36); Mean Corpuscular Volume 94.8 FL (87-102); Mean Platelet Volume 10.3 FL (9.6-12.0); Monocytes % 9.7 % (1.7-12.7); Neutrophils % 75.3 % (38.7-73.9); Platelet Count 129 T/CUMM (130-400); Red Blood Count 3.08 MC/CUMM (3.8-5.5); Red Cell Distribution Width 16.7 % (9.3-17.3); White Blood Count 4.9 T/CUMM (4-12)
[2019-05-15 05:55] LABS: Calcium 8.7 MG/DL (8.5-10.1); Osmolality,Calculated 290.4 MOS/KG (273-304)
[2019-05-15] MEDS ORDERED: LEVOTHYROXINE 50 MCG TABLET PO SCH (07:00)
[2019-05-15] MEDS: INSULIN REGULAR 100 UNIT/ML SUBCUT SCH ×2 (07:32→12:10)
[2019-05-15] MEDS ORDERED: ALFUZOSIN 10 MG TABLET PO SCH (09:00)
[2019-05-15] MEDS ORDERED: ASPIRIN CHEW 81 MG TABLET PO SCH (09:00)
[2019-05-15] MEDS ORDERED: ALLOPURINOL 100 MG TABLET PO SCH (09:00)
[2019-05-15] MEDS: METOPROLOL TARTRATE 25 MG TABLET PO SCH (09:58)
[2019-05-15] MEDS: SODIUM CHLORIDE 0.9% 1,000 ML IV SCH (10:46)
[2019-05-15] MEDS: FERROUS SULFATE 325 MG TABLET PO SCH (10:46)
[2019-05-15 11:30] VITALS: BP 129/73
== END 2019-05-15 12:40 | disposition home or self-care (01) | DRG 617 ==
LOC: N.OR 07:49 → N.SDSINP 07:50 → N.3E 11:33
PROVIDERS: ADMIT Surgery; ATTEND Surgery

== ENCOUNTER 2019-08-13 13:40 | Inpatient (IN) ==
[2019-08-13 15:15] LABS: Basophils % 0.6 % (0.0-0.8); Eosinophils # 0.1 10*3/uL (0.0-0.87); Immature Granulocytes % 0.4 %; Immature Granulocytes Absolute 0.03 #; Lymphocytes # 0.5 10*3/uL (1.4-4.0); Lymphocytes % 7.9 % (21.2-54.2); Mean Corpuscular HGB Conc 30.5 GM/DL (32-36); Mean Corpuscular Volume 104.2 FL (87-102); Mean Platelet Volume 10.3 FL (9.6-12.0); Monocytes % 7.6 % (1.7-12.7); Neutrophils % 82.5 % (38.7-73.9); Platelet Count 164 T/CUMM (130-400); Red Blood Count 1.92 MC/CUMM (3.8-5.5); Red Cell Distribution Width 19.1 % (9.3-17.3); White Blood Count 6.7 T/CUMM (4-12)
[2019-08-13 15:22] LABS: Hemoglobin 6.1 GM/DL (14.0-18.0)
[2019-08-13 15:27] LABS: INR 1.3; PT Patient Result 14.5 SECS (9.6-12.2); Partial Thromboplastin Time 27.1 SECS (20.8-36.0)
[2019-08-13 15:42] LABS: Alanine Aminotransferase 15 U/L (16-61); Albumin 3.7 G/DL (3.4-5.0); Alkaline Phosphatase 48 U/L (45-117); Aspartate Amino Transferase 12 U/L (0-37); Bilirubin,Total < 0.39 MG/DL (0.2-1.0); Blood Urea Nitrogen 51 MG/DL (7-18); Calcium 8.8 MG/DL (8.5-10.1); Estimated Glom Filtration Rate 37 ML/MIN; Glucose 122 MG/DL (74-106); Osmolality,Calculated 293.4 MOS/KG (273-304); Total Protein 5.9 G/DL (6.4-8.3)
[2019-08-13 15:47] LABS: % Iron Saturation 22.7 % (18-50)
[2019-08-13 15:57] LABS: Folate 11.4 NG/ML (5.4-24.0)
[2019-08-13] MEDS ORDERED: ACETAMINOPHEN 325 MG TABLET PO PRN (16:10)
[2019-08-13] MEDS ORDERED: DEXTROSE 50% 25 GM/50 ML VIAL IV PRN (16:10)
[2019-08-13] MEDS ORDERED: ONDANSETRON 4 MG/2 ML VIAL IV PRN (16:10)
[2019-08-13] MEDS ORDERED: GLUCAGON 1 MG VIAL IM PRN (16:10)
[2019-08-13] MEDS ORDERED: SODIUM CHLORIDE 0.9% 1,000 ML IV PRN (16:15)
[2019-08-13] MEDS: INSULIN REGULAR 100 UNIT/ML SUBCUT SCH ×2 (18:28→22:15)
[2019-08-13] MEDS: ROSUVASTATIN 20 MG TABLET PO SCH (22:14)
[2019-08-13] MEDS: FERROUS SULFATE 325 MG TABLET PO SCH (22:14)
[2019-08-14 05:01] LABS: Basophils % 0.3 % (0.0-0.8); Eosinophils # 0.1 10*3/uL (0.0-0.87); Eosinophils % 2.2 % (0.00-10.9); Hematocrit 22.6 VOL% (42.0-52.0); Hemoglobin 7.1 GM/DL (14.0-18.0); Immature Granulocytes % 0.3 %; Immature Granulocytes Absolute 0.02 #; Lymphocytes # 0.9 10*3/uL (1.4-4.0); Lymphocytes % 14.5 % (21.2-54.2); Mean Corpuscular HGB Conc 31.4 GM/DL (32-36); Mean Platelet Volume 10.5 FL (9.6-12.0); Monocytes % 11.1 % (1.7-12.7); Neutrophils % 71.6 % (38.7-73.9); Platelet Count 151 T/CUMM (130-400); Red Blood Count 2.26 MC/CUMM (3.8-5.5); Red Cell Distribution Width 19.4 % (9.3-17.3); White Blood Count 6.4 T/CUMM (4-12)
[2019-08-14] MEDS: LEVOTHYROXINE 50 MCG TABLET PO SCH (07:58)
[2019-08-14] MEDS: ALLOPURINOL 100 MG TABLET PO SCH (08:01)
[2019-08-14] MEDS: PANTOPRAZOLE 40 MG TABLET PO SCH (08:01)
[2019-08-14] MEDS: FERROUS SULFATE 325 MG TABLET PO SCH ×2 (08:01→20:21)
[2019-08-14] MEDS: INSULIN REGULAR 100 UNIT/ML SUBCUT SCH ×4 (08:07→20:21)
[2019-08-14] MEDS ORDERED: SODIUM CHLORIDE 0.9% 1,000 ML IV PRN (09:00)
[2019-08-14 16:10] LABS: Hemoglobin 8.5 GM/DL (14.0-18.0)
[2019-08-14] MEDS: ROSUVASTATIN 20 MG TABLET PO SCH (20:21)
[2019-08-15 04:52] LABS: Basophils % 0.5 % (0.0-0.8); Eosinophils # 0.2 10*3/uL (0.0-0.87); Eosinophils % 3.6 % (0.00-10.9); Hematocrit 24.9 VOL% (42.0-52.0); Hemoglobin 7.9 GM/DL (14.0-18.0); Immature Granulocytes % 0.3 %; Immature Granulocytes Absolute 0.02 #; Lymphocytes # 0.8 10*3/uL (1.4-4.0); Lymphocytes % 14.3 % (21.2-54.2); Mean Corpuscular HGB Conc 31.7 GM/DL (32-36); Mean Corpuscular Volume 97.3 FL (87-102); Mean Platelet Volume 10.3 FL (9.6-12.0); Monocytes % 10.7 % (1.7-12.7); Neutrophils % 70.6 % (38.7-73.9); Platelet Count 134 T/CUMM (130-400); Red Blood Count 2.56 MC/CUMM (3.8-5.5); Red Cell Distribution Width 19.4 % (9.3-17.3); White Blood Count 5.9 T/CUMM (4-12)
[2019-08-15 05:08] LABS: Calcium 8.5 MG/DL (8.5-10.1); Osmolality,Calculated 295.8 MOS/KG (273-304)
[2019-08-15] MEDS: LEVOTHYROXINE 50 MCG TABLET PO SCH (06:45)
[2019-08-15] MEDS ORDERED: LACTATED RINGERS 1,000 ML IV SCH (08:00)
[2019-08-15] MEDS ORDERED: ETOMIDATE 20 MG/10 ML VIAL IV ONE (09:00)
[2019-08-15] MEDS ORDERED: PROPOFOL 200 MG/20 ML VIAL IV ONE (09:00)
[2019-08-15] MEDS ORDERED: LIDOCAINE 2% 5 ML VIAL ONE (09:00)
[2019-08-15] MEDS: INSULIN REGULAR 100 UNIT/ML SUBCUT SCH ×4 (09:44→21:00)
[2019-08-15] MEDS: ALLOPURINOL 100 MG TABLET PO SCH (10:26)
[2019-08-15] MEDS: FERROUS SULFATE 325 MG TABLET PO SCH ×2 (10:26→21:00)
[2019-08-15] MEDS: PANTOPRAZOLE 40 MG TABLET PO SCH (10:26)
[2019-08-15] MEDS ORDERED: POLYETHYLENE GLYCOL POWDER 255 GM BOTTLE PO ONE (18:00)
[2019-08-15] MEDS: ROSUVASTATIN 20 MG TABLET PO SCH (21:00)
[2019-08-16 05:31] LABS: Basophils # 0.1 10*3/uL (0.0-0.2); Basophils % 0.9 % (0.0-0.8); Eosinophils # 0.3 10*3/uL (0.0-0.87); Eosinophils % 4.9 % (0.00-10.9); Hematocrit 25.6 VOL% (42.0-52.0); Hemoglobin 8.1 GM/DL (14.0-18.0); Immature Granulocytes % 0.4 %; Immature Granulocytes Absolute 0.03 #; Lymphocytes % 15.1 % (21.2-54.2); Mean Corpuscular HGB Conc 31.6 GM/DL (32-36); Mean Corpuscular Volume 99.6 FL (87-102); Mean Platelet Volume 9.6 FL (9.6-12.0); Monocytes % 11.7 % (1.7-12.7); Platelet Count 132 T/CUMM (130-400); Red Blood Count 2.57 MC/CUMM (3.8-5.5); White Blood Count 6.7 T/CUMM (4-12)
[2019-08-16 05:46] LABS: Calcium 8.4 MG/DL (8.5-10.1); Osmolality,Calculated 286.4 MOS/KG (273-304)
[2019-08-16 05:51] LABS: Hypochromasia 1+; Ovalocytes Slight; Platelet Estimate Normal
[2019-08-16] MEDS ORDERED: MAGNESIUM CITRATE 300 ML BOTTLE PO ONE (06:00)
[2019-08-16] MEDS: LEVOTHYROXINE 50 MCG TABLET PO SCH (06:08)
[2019-08-16] MEDS: INSULIN REGULAR 100 UNIT/ML SUBCUT SCH ×4 (08:16→21:00)
[2019-08-16] MEDS: FERROUS SULFATE 325 MG TABLET PO SCH ×2 (09:51→21:00)
[2019-08-16] MEDS: ALLOPURINOL 100 MG TABLET PO SCH (09:52)
[2019-08-16] MEDS: PANTOPRAZOLE 40 MG TABLET PO SCH (09:52)
[2019-08-16] MEDS ORDERED: PROPOFOL 200 MG/20 ML VIAL IV ONE (13:00)
[2019-08-16] MEDS ORDERED: LIDOCAINE 2% 5 ML VIAL ONE (13:00)
[2019-08-16] MEDS: ROSUVASTATIN 20 MG TABLET PO SCH (21:00)
[2019-08-17] MEDS: LEVOTHYROXINE 50 MCG TABLET PO SCH (06:08)
[2019-08-17] MEDS: INSULIN REGULAR 100 UNIT/ML SUBCUT SCH ×2 (08:10→12:00)
[2019-08-17 08:52] LABS: Basophils % 0.6 % (0.0-0.8); Eosinophils # 0.2 10*3/uL (0.0-0.87); Eosinophils % 2.8 % (0.00-10.9); Hematocrit 26.7 VOL% (42.0-52.0); Hemoglobin 8.4 GM/DL (14.0-18.0); Immature Granulocytes % 0.3 %; Immature Granulocytes Absolute 0.02 #; Lymphocytes # 0.7 10*3/uL (1.4-4.0); Lymphocytes % 10.7 % (21.2-54.2); Mean Corpuscular HGB Conc 31.5 GM/DL (32-36); Mean Corpuscular Volume 99.3 FL (87-102); Monocytes % 8.7 % (1.7-12.7); Neutrophils % 76.9 % (38.7-73.9); Platelet Count 135 T/CUMM (130-400); Red Blood Count 2.69 MC/CUMM (3.8-5.5); Red Cell Distribution Width 18.5 % (9.3-17.3); White Blood Count 6.5 T/CUMM (4-12)
[2019-08-17] MEDS: FERROUS SULFATE 325 MG TABLET PO SCH (10:06)
[2019-08-17] MEDS: PANTOPRAZOLE 40 MG TABLET PO SCH (10:07)
[2019-08-17] MEDS: ALLOPURINOL 100 MG TABLET PO SCH (10:07)
[2019-08-17 12:01] VITALS: BP 91/50
== END 2019-08-17 13:35 | disposition home or self-care (01) | DRG 813 ==
LOC: N.ED 13:40 → N.EDINP 13:40 → N.2W 16:36 → N.TELEN 16:48
PROVIDERS: ADMIT Internal Medicine Geriatric Medicine; ATTEND Internal Medicine Geriatric Medicine

== ENCOUNTER 2020-09-01 13:59 | Inpatient (IN) ==
[2020-09-01] MEDS ORDERED: GLUCAGON 1 MG VIAL IM PRN (15:59)
[2020-09-01] MEDS ORDERED: MORPHINE 4 MG/1 ML VIAL IV PRN ×2 (15:59)
[2020-09-01] MEDS ORDERED: BISACODYL 5 MG TABLET PO PRN (15:59)
[2020-09-01] MEDS ORDERED: ONDANSETRON 4 MG/2 ML VIAL IV PRN (15:59)
[2020-09-01] MEDS ORDERED: ACETAMINOPHEN 325 MG TABLET PO PRN (15:59)
[2020-09-01] MEDS ORDERED: DEXTROSE 50% 25 GM/50 ML VIAL IV PRN (15:59)
[2020-09-01] MEDS ORDERED: ALBUTEROL/IPRATROPIUM 3 ML NEB RESP TX PRN (15:59)
[2020-09-01 16:54] LABS: Basophils % 0.4 % (0.0-0.8); Eosinophils # 0.3 10*3/uL (0.0-0.87); Eosinophils % 3.6 % (0.00-10.9); Hematocrit 38.7 VOL% (42.0-52.0); Hemoglobin 12.6 GM/DL (14.0-18.0); Immature Granulocytes % 0.3 %; Immature Granulocytes Absolute 0.02 #; Lymphocytes # 0.6 10*3/uL (1.4-4.0); Lymphocytes % 7.8 % (21.2-54.2); Mean Corpuscular HGB Conc 32.6 GM/DL (32-36); Mean Corpuscular Volume 91.9 FL (87-102); Monocytes % 8.3 % (1.7-12.7); Neutrophils % 79.6 % (38.7-73.9); Platelet Count 130 T/CUMM (130-400); Red Blood Count 4.21 MC/CUMM (3.8-5.5); Red Cell Distribution Width 14.7 % (9.3-17.3)
[2020-09-01] MEDS: INSULIN LISPRO 100 UNIT/ML SUBCUT SCH ×3 (17:05→20:39)
[2020-09-01 17:07] LABS: Calcium 8.9 MG/DL (8.5-10.1); Potassium 4.5 MMOL/L (3.5-5.1)
[2020-09-01] MEDS: LACTATED RINGERS 1,000 ML IV SCH (17:24)
[2020-09-01] MEDS: PIPERACILLIN/TAZOBACTAM 3,375 MG in SODIUM CHLORIDE 0.9% 100 ML IV SCH (17:26)
[2020-09-01] MEDS: VANCOMYCIN INJ 1,750 MG in SODIUM CHLORIDE 0.9% 500 ML IV SCH (20:39)
[2020-09-02] MEDS: PIPERACILLIN/TAZOBACTAM 3,375 MG in SODIUM CHLORIDE 0.9% 100 ML IV SCH ×3 (00:04→17:08)
[2020-09-02] MEDS: LACTATED RINGERS 1,000 ML IV SCH ×2 (02:32→15:01)
[2020-09-02] MEDS: INSULIN LISPRO 100 UNIT/ML SUBCUT SCH ×4 (07:50→20:57)
[2020-09-02] MEDS: ENOXAPARIN 40 MG/0.4 ML SYRINGE SUBCUT SCH (08:58)
[2020-09-02] MEDS: PANTOPRAZOLE 40 MG TABLET PO SCH (08:59)
[2020-09-02] MEDS: VANCOMYCIN INJ 1,750 MG in SODIUM CHLORIDE 0.9% 500 ML IV SCH (20:57)
[2020-09-03] MEDS: PIPERACILLIN/TAZOBACTAM 3,375 MG in SODIUM CHLORIDE 0.9% 100 ML IV SCH (02:18)
[2020-09-03] MEDS: LACTATED RINGERS 1,000 ML IV SCH ×2 (02:25→10:09)
[2020-09-03 07:04] LABS: Calcium 8.7 MG/DL (8.5-10.1); Osmolality,Calculated 284.5 MOS/KG (273-304); Potassium 4.4 MMOL/L (3.5-5.1)
[2020-09-03 07:09] LABS: Basophils # 0.1 10*3/uL (0.0-0.2); Basophils % 1.1 % (0.0-0.8); Eosinophils # 0.3 10*3/uL (0.0-0.87); Eosinophils % 6.6 % (0.00-10.9); Hematocrit 34.3 VOL% (42.0-52.0); Hemoglobin 11.1 GM/DL (14.0-18.0); Immature Granulocytes % 0.2 %; Immature Granulocytes Absolute 0.01 #; Lymphocytes # 0.6 10*3/uL (1.4-4.0); Lymphocytes % 12.7 % (21.2-54.2); Mean Corpuscular HGB Conc 32.4 GM/DL (32-36); Mean Corpuscular Volume 92.2 FL (87-102); Mean Platelet Volume 10.5 FL (9.6-12.0); Monocytes % 12.7 % (1.7-12.7); Neutrophils % 66.7 % (38.7-73.9); Platelet Count 105 T/CUMM (130-400); Red Blood Count 3.72 MC/CUMM (3.8-5.5); Red Cell Distribution Width 14.3 % (9.3-17.3); White Blood Count 4.7 T/CUMM (4-12)
[2020-09-03 07:33] LABS: Hypochromasia 1+; Microcytosis 1+; Ovalocytes Slight; Platelet Estimate Decreased
[2020-09-03] MEDS ORDERED: ERTAPENEM 1,000 MG in SODIUM CHLORIDE 0.9% 100 ML IV SCH (09:00)
[2020-09-03] MEDS: PANTOPRAZOLE 40 MG TABLET PO SCH (09:28)
[2020-09-03] MEDS: ENOXAPARIN 40 MG/0.4 ML SYRINGE SUBCUT SCH (09:28)
[2020-09-03] MEDS: INSULIN LISPRO 100 UNIT/ML SUBCUT SCH ×2 (10:08→11:42)
[2020-09-03 11:58] VITALS: BP 163/81
== END 2020-09-03 15:02 | disposition home health service (06) | DRG 74 ==
LOC: N.TELEN 15:54
PROVIDERS: ADMIT Surgery; ATTEND Surgery

== ENCOUNTER 2021-11-30 13:22 | Inpatient (IN) ==
[2021-11-30] MEDS ORDERED: GLUCAGON 1 MG VIAL IM PRN (15:24)
[2021-11-30] MEDS ORDERED: DEXTROSE 10% 250 ML BAG IV PRN (15:24)
[2021-11-30] MEDS: INSULIN REGULAR 100 UNIT/ML SUBCUT SCH ×2 (16:40→23:13)
[2021-11-30] MEDS: PIPERACILLIN/TAZOBACTAM 3,375 MG in SODIUM CHLORIDE 0.9% 100 ML IV SCH (16:40)
[2021-11-30 17:34] LABS: Basophils % 0.2 % (0.0-0.8); Eosinophils # 0.1 10*3/uL (0.0-0.87); Eosinophils % 0.9 % (0.00-10.9); Hematocrit 32.3 VOL% (42.0-52.0); Hemoglobin 10.4 GM/DL (14.0-18.0); Immature Granulocytes % 0.7 %; Immature Granulocytes Absolute 0.09 #; Lymphocytes # 0.5 10*3/uL (1.4-4.0); Lymphocytes % 4.2 % (21.2-54.2); Mean Corpuscular HGB Conc 32.2 GM/DL (32-36); Mean Corpuscular Volume 92.6 FL (87-102); Mean Platelet Volume 10.9 FL (9.6-12.0); Monocytes % 6.9 % (1.7-12.7); Neutrophils % 87.1 % (38.7-73.9); Platelet Count 143 T/CUMM (130-400); Red Blood Count 3.49 MC/CUMM (3.8-5.5); Red Cell Distribution Width 14.2 % (9.3-17.3); White Blood Count 12.1 T/CUMM (4-12)
[2021-11-30 17:50] LABS: Calcium 8.6 MG/DL (8.5-10.1); Osmolality,Calculated 285.4 MOS/KG (273-304); Potassium 4.1 MMOL/L (3.5-5.1)
[2021-11-30 17:56] LABS: INR 1.6; PT Patient Result 17.4 SECS (10.5-12.0)
[2021-11-30 18:12] LABS: Band Neutrophils 3 % (0-10); Lymphocytes 3 % (20-55); Platelet Estimate Adequate; Segmented Neutrophils 88 % (50-85); Total Cells Counted 100
[2021-11-30] MEDS ORDERED: SACUBITRIL/VALSARTAN 49-51 MG TABLET PO SCH (21:00)
[2021-11-30] MEDS: ROSUVASTATIN 10 MG TABLET PO SCH (23:09)
[2021-11-30] MEDS: METOPROLOL SUCCINATE XL 50 MG TABLET PO SCH (23:09)
[2021-11-30] MEDS: INSULIN GLARGINE 100 UNIT/ML SUBCUT SCH (23:13)
[2021-12-01] MEDS: PIPERACILLIN/TAZOBACTAM 3,375 MG in SODIUM CHLORIDE 0.9% 100 ML IV SCH ×3 (02:05→17:39)
[2021-12-01] MEDS: LEVOTHYROXINE 50 MCG TABLET PO SCH (06:35)
[2021-12-01] MEDS: INSULIN REGULAR 100 UNIT/ML SUBCUT SCH ×4 (07:59→21:12)
[2021-12-01] MEDS: METOPROLOL SUCCINATE XL 50 MG TABLET PO SCH ×2 (08:03→20:41)
[2021-12-01] MEDS ORDERED: propofoL 200 MG/20 ML VIAL IV ONE (09:29)
[2021-12-01] MEDS ORDERED: LIDOCAINE 2% 5 ML VIAL ONE (09:29)
[2021-12-01] MEDS ORDERED: fentaNYL 100 MCG/2 ML VIAL ONE (09:29)
[2021-12-01] MEDS ORDERED: ONDANSETRON 4 MG/2 ML VIAL ONE (09:49)
[2021-12-01] MEDS ORDERED: ePHEDrine 50 MG/ML VIAL ONE (09:50)
[2021-12-01] MEDS ORDERED: NITROGLYCERIN SL 0.4 MG TABLET SL PRN (09:51)
[2021-12-01] MEDS ORDERED: LACTATED RINGERS 1,000 ML IV SCH (10:00)
[2021-12-01] MEDS ORDERED: SEVOFLURANE 1 UNIT/15 MINUTE INH ONE (10:16)
[2021-12-01] MEDS: SACUBITRIL/VALSARTAN 49-51 MG TABLET PO SCH ×2 (10:51→20:42)
[2021-12-01] MEDS ORDERED: DEXTROSE 50% 25 GM/50 ML VIAL IV PRN (11:35)
[2021-12-01] MEDS: ROSUVASTATIN 10 MG TABLET PO SCH (20:42)
[2021-12-01] MEDS: INSULIN GLARGINE 100 UNIT/ML SUBCUT SCH (21:13)
[2021-12-02] MEDS: PIPERACILLIN/TAZOBACTAM 3,375 MG in SODIUM CHLORIDE 0.9% 100 ML IV SCH ×3 (01:24→16:16)
[2021-12-02 05:20] LABS: Basophils % 0.4 % (0.0-0.8); Eosinophils # 0.2 10*3/uL (0.0-0.87); Eosinophils % 2.3 % (0.00-10.9); Hematocrit 32.3 VOL% (42.0-52.0); Hemoglobin 10.5 GM/DL (14.0-18.0); Immature Granulocytes % 0.4 %; Immature Granulocytes Absolute 0.03 #; Lymphocytes # 0.7 10*3/uL (1.4-4.0); Lymphocytes % 10.6 % (21.2-54.2); Mean Corpuscular HGB Conc 32.5 GM/DL (32-36); Mean Corpuscular Volume 91.5 FL (87-102); Mean Platelet Volume 10.5 FL (9.6-12.0); Monocytes % 11.9 % (1.7-12.7); Neutrophils % 74.4 % (38.7-73.9); Platelet Count 137 T/CUMM (130-400); Red Blood Count 3.53 MC/CUMM (3.8-5.5); Red Cell Distribution Width 14.4 % (9.3-17.3); White Blood Count 6.8 T/CUMM (4-12)
[2021-12-02 05:38] LABS: Calcium 8.9 MG/DL (8.5-10.1); Potassium 4.4 MMOL/L (3.5-5.1)
[2021-12-02] MEDS: LEVOTHYROXINE 50 MCG TABLET PO SCH (06:09)
[2021-12-02] MEDS: INSULIN REGULAR 100 UNIT/ML SUBCUT SCH ×4 (08:27→22:15)
[2021-12-02] MEDS: METOPROLOL SUCCINATE XL 50 MG TABLET PO SCH ×2 (08:28→22:16)
[2021-12-02] MEDS: SACUBITRIL/VALSARTAN 49-51 MG TABLET PO SCH ×2 (08:28→22:15)
[2021-12-02] MEDS: ASPIRIN EC 81 MG TABLET PO SCH (08:28)
[2021-12-02] MEDS: ROSUVASTATIN 10 MG TABLET PO SCH (22:15)
[2021-12-02] MEDS: INSULIN GLARGINE 100 UNIT/ML SUBCUT SCH (22:16)
[2021-12-03] MEDS: PIPERACILLIN/TAZOBACTAM 3,375 MG in SODIUM CHLORIDE 0.9% 100 ML IV SCH ×3 (01:08→16:03)
[2021-12-03] MEDS: LEVOTHYROXINE 50 MCG TABLET PO SCH (06:28)
[2021-12-03] MEDS: SACUBITRIL/VALSARTAN 49-51 MG TABLET PO SCH ×2 (08:27→20:17)
[2021-12-03] MEDS: ASPIRIN EC 81 MG TABLET PO SCH (08:27)
[2021-12-03] MEDS: INSULIN REGULAR 100 UNIT/ML SUBCUT SCH ×4 (08:27→20:18)
[2021-12-03] MEDS: METOPROLOL SUCCINATE XL 50 MG TABLET PO SCH ×2 (08:28→20:17)
[2021-12-03] MEDS: ROSUVASTATIN 10 MG TABLET PO SCH (20:16)
[2021-12-03] MEDS: INSULIN GLARGINE 100 UNIT/ML SUBCUT SCH (20:17)
[2021-12-04] MEDS: PIPERACILLIN/TAZOBACTAM 3,375 MG in SODIUM CHLORIDE 0.9% 100 ML IV SCH ×2 (01:09→09:04)
[2021-12-04] MEDS: LEVOTHYROXINE 50 MCG TABLET PO SCH (07:19)
[2021-12-04] MEDS: ASPIRIN EC 81 MG TABLET PO SCH (08:39)
[2021-12-04] MEDS: METOPROLOL SUCCINATE XL 50 MG TABLET PO SCH (08:39)
[2021-12-04] MEDS: INSULIN REGULAR 100 UNIT/ML SUBCUT SCH ×2 (08:39→12:37)
[2021-12-04] MEDS: SACUBITRIL/VALSARTAN 49-51 MG TABLET PO SCH (08:39)
[2021-12-04 11:46] VITALS: BP 134/76
== END 2021-12-04 16:23 | disposition home health service (06) | DRG 628 ==
LOC: N.5E 13:57 → INTOOBSV 13:57 → OBSVTOIN 13:57
PROVIDERS: ADMIT Surgery; ATTEND Surgery

== ENCOUNTER 2022-10-29 10:44 | Inpatient (IN) ==
[2022-10-29] MEDS ORDERED: SODIUM CHLORIDE 0.9% 1,000 ML IV STA (11:14)
[2022-10-29 11:32] LABS: Basophils % 0.1 % (0.0-0.8); Eosinophils # 0.1 10*3/uL (0.0-0.87); Eosinophils % 0.9 % (0.00-10.9); Hemoglobin 9.6 GM/DL (14.0-18.0); Immature Granulocytes % 3.2 %; Immature Granulocytes Absolute 0.22 #; Lymphocytes # 0.3 10*3/uL (1.4-4.0); Mean Corpuscular Volume 98.4 FL (87-102); Monocytes # 0.3 10*3/uL (0.11-0.8); Neutrophils % 86.8 % (38.7-73.9); Platelet Count 105 T/CUMM (130-400); Red Blood Count 3.05 MC/CUMM (3.8-5.5); Red Cell Distribution Width 13.5 % (9.3-17.3); White Blood Count 6.8 T/CUMM (4-12)
[2022-10-29] MEDS ORDERED: PANTOPRAZOLE 40 MG VIAL IV STA (11:34)
[2022-10-29 11:55] LABS: Alanine Aminotransferase 111 U/L (16-61); Albumin 2.5 G/DL (3.4-5.0); Alkaline Phosphatase 49 U/L (45-117); Amylase 63 U/L (25-115); Aspartate Amino Transferase 72 U/L (0-37); Bilirubin,Total < 0.39 MG/DL (0.20-1.00); Blood Urea Nitrogen 95 MG/DL (7-18); Calcium 7.7 MG/DL (8.5-10.1); Carbon Dioxide 13 MMOL/L (21-32); Chloride 111 MMOL/L (98-107); Glucose 241 MG/DL (74-106); Potassium 5.7 MMOL/L (3.5-5.1); Sodium 136 MMOL/L (136-145); Total Protein 5.3 G/DL (6.4-8.2)
[2022-10-29 12:35] LABS: Hepatitis B Core IgM Quant 0.07 Index; Hepatitis B Surface Ag Quant < 0.10 Index; Hepatitis B Surface Ag Result Non-Reactive (NonReactive); Hepatitis C Virus Ab Quant 0.03 Index; Hepatitis C Virus Ab Result Non-Reactive (NonReactive)
[2022-10-29] MEDS ORDERED: ONDANSETRON 4 MG/2 ML VIAL IV PRN (13:40)
[2022-10-29] MEDS ORDERED: ACETAMINOPHEN 325 MG TABLET PO PRN (13:40)
[2022-10-29] MEDS ORDERED: SODIUM BICARBONATE 50 MEQ/50 ML VIAL IV STA (14:33)
[2022-10-29] MEDS ORDERED: SODIUM BICARBONATE 50 MEQ/50 ML VIAL IV ONE ×2 (14:33→16:09)
[2022-10-29] MEDS: SODIUM ZIRCONIUM CYCLOSILICATE 10 GM PACK PO SCH (14:47)
[2022-10-29] MEDS: SODIUM CHLORIDE 0.9% 1,000 ML IV SCH (14:47)
[2022-10-29] MEDS ORDERED: SODIUM BICARB INJ 50 MEQ in IV BAG 1 EACH IV SCH (17:00)
[2022-10-29] MEDS ORDERED: SODIUM BICARB IV SCH (17:00)
[2022-10-29] MEDS: INSULIN REGULAR 100 UNIT/ML SUBCUT SCH ×2 (17:14→21:53)
[2022-10-29 17:19] LABS: INR 1.2; PT Patient Result 12.7 SECS (10.1-12.1); Partial Thromboplastin Time 35.5 SECS (23.7-32.9)
[2022-10-29] MEDS: PANTOPRAZOLE 40 MG VIAL IV SCH (21:53)
[2022-10-30 06:18] LABS: Alanine Aminotransferase 83 U/L (16-61); Albumin 2.6 G/DL (3.4-5.0); Alkaline Phosphatase 46 U/L (45-117); Aspartate Amino Transferase 46 U/L (0-37); Bilirubin,Total < 0.39 MG/DL (0.20-1.00); Blood Urea Nitrogen 116 MG/DL (7-18); Calcium 7.7 MG/DL (8.5-10.1); Carbon Dioxide 17 MMOL/L (21-32); Chloride 112 MMOL/L (98-107); Glucose 200 MG/DL (74-106); Osmolality,Calculated 315.8 MOS/KG (273-304); Sodium 137 MMOL/L (136-145); Thyroid Stimulating Hormone 0.805 uIU/ml (0.358-3.74); Total Protein 5.8 G/DL (6.4-8.2)
[2022-10-30 06:20] LABS: Basophils % 0.1 % (0.0-0.8); Eosinophils # 0.1 10*3/uL (0.0-0.87); Eosinophils % 0.7 % (0.00-10.9); Hematocrit 25.5 VOL% (42.0-52.0); Hemoglobin 8.2 GM/DL (14.0-18.0); Immature Granulocytes % 1.5 %; Immature Granulocytes Absolute 0.12 #; Lymphocytes # 0.3 10*3/uL (1.4-4.0); Mean Corpuscular HGB Conc 32.2 GM/DL (32-36); Mean Corpuscular Volume 98.5 FL (87-102); Mean Platelet Volume 10.8 FL (9.6-12.0); Monocytes # 0.3 10*3/uL (0.11-0.8); Neutrophils % 90.7 % (38.7-73.9); Platelet Count 125 T/CUMM (130-400); Red Blood Count 2.59 MC/CUMM (3.8-5.5); Red Cell Distribution Width 13.7 % (9.3-17.3); White Blood Count 8.2 T/CUMM (4-12)
[2022-10-30] MEDS ORDERED: SODIUM BICARBONATE 50 MEQ/50 ML VIAL IV ONE (07:38)
[2022-10-30] MEDS ORDERED: SODIUM BICARB INJ 50 MEQ in IV BAG 1 EACH IV ONE (08:00)
[2022-10-30 09:51] LABS: Band Neutrophils 2 % (0-10); Lymphocytes 3 % (20-55); Platelet Estimate Adequate; Total Cells Counted 100
[2022-10-30 09:52] LABS: Anisocytosis 1+; Burr Cells Few; Macrocytosis Slight; Ovalocytes Few
[2022-10-30] MEDS: SODIUM ZIRCONIUM CYCLOSILICATE 10 GM PACK PO SCH (11:52)
[2022-10-30] MEDS: INSULIN REGULAR 100 UNIT/ML SUBCUT SCH ×4 (11:52→21:49)
[2022-10-30] MEDS: PANTOPRAZOLE 40 MG VIAL IV SCH ×2 (11:53→21:49)
[2022-10-30] MEDS: LEVOTHYROXINE 75 MCG TABLET PO SCH (11:53)
[2022-10-30] MEDS ORDERED: ALBUTEROL/IPRATROPIUM 3 ML NEB RESP TX PRN (16:03)
[2022-10-30] MEDS: SODIUM CHLORIDE 0.9% 1,000 ML IV SCH (17:23)
[2022-10-30] MEDS: METOPROLOL SUCCINATE XL 50 MG TABLET PO SCH (21:50)
[2022-10-31 05:58] LABS: Alanine Aminotransferase 94 U/L (16-61); Albumin 2.2 G/DL (3.4-5.0); Alkaline Phosphatase 41 U/L (45-117); Aspartate Amino Transferase 83 U/L (0-37); Bilirubin,Total < 0.39 MG/DL (0.20-1.00); Blood Urea Nitrogen 99 MG/DL (7-18); Calcium 7.7 MG/DL (8.5-10.1); Carbon Dioxide 19 MMOL/L (21-32); Chloride 115 MMOL/L (98-107); Glucose 278 MG/DL (74-106); Osmolality,Calculated 321.3 MOS/KG (273-304); Potassium 5.7 MMOL/L (3.5-5.1); Sodium 141 MMOL/L (136-145); Total Protein 4.9 G/DL (6.4-8.2)
[2022-10-31 06:15] LABS: Basophils % 0.1 % (0.0-0.8); Eosinophils % 0.2 % (0.00-10.9); Hematocrit 19.7 VOL% (42.0-52.0); Immature Granulocytes % 2.2 %; Immature Granulocytes Absolute 0.29 #; Lymphocytes # 0.4 10*3/uL (1.4-4.0); Lymphocytes % 2.9 % (21.2-54.2); Mean Corpuscular HGB Conc 31.5 GM/DL (32-36); Mean Corpuscular Volume 100.5 FL (87-102); Mean Platelet Volume 11.1 FL (9.6-12.0); Monocytes # 0.4 10*3/uL (0.11-0.8); Monocytes % 2.9 % (1.7-12.7); Neutrophils % 91.7 % (38.7-73.9); Platelet Count 148 T/CUMM (130-400); Red Blood Count 1.96 MC/CUMM (3.8-5.5); White Blood Count 13.2 T/CUMM (4-12)
[2022-10-31 06:23] LABS: Hemoglobin 6.2 GM/DL (14.0-18.0)
[2022-10-31 07:17] LABS: Hematocrit 19.5 VOL% (42.0-52.0)
[2022-10-31 07:20] LABS: Anisocytosis 1+; Band Neutrophils 2 % (0-10); Burr Cells Few; Lymphocytes 5 % (20-55); Platelet Estimate Adequate; Total Cells Counted 100
[2022-10-31 07:21] LABS: Macrocytosis 1+
[2022-10-31] MEDS ORDERED: SODIUM CHLORIDE 0.9% 1,000 ML IV PRN ×2 (07:35→11:23)
[2022-10-31 07:42] LABS: Hemoglobin 6.3 GM/DL (14.0-18.0)
[2022-10-31] MEDS: PANTOPRAZOLE 40 MG VIAL IV SCH ×2 (10:59→21:20)
[2022-10-31] MEDS: INSULIN REGULAR 100 UNIT/ML SUBCUT SCH ×4 (10:59→21:20)
[2022-10-31] MEDS: LEVOTHYROXINE 75 MCG TABLET PO SCH (10:59)
[2022-10-31] MEDS: SODIUM ZIRCONIUM CYCLOSILICATE 10 GM PACK PO SCH (10:59)
[2022-10-31] MEDS: SODIUM CHLORIDE 0.9% 1,000 ML IV SCH (11:00)
[2022-10-31] MEDS: SODIUM BICARB INJ 50 MEQ in SODIUM CHLORIDE 0.45% 1,000 ML IV SCH (18:10)
[2022-10-31 19:20] LABS: Hemoglobin 7.1 GM/DL (14.0-18.0)
[2022-10-31] MEDS: METOPROLOL SUCCINATE XL 50 MG TABLET PO SCH (21:20)
[2022-11-01 05:32] LABS: Basophils % 0.1 % (0.0-0.8); Eosinophils # 0.2 10*3/uL (0.0-0.87); Eosinophils % 1.4 % (0.00-10.9); Hematocrit 20.9 VOL% (42.0-52.0); Immature Granulocytes % 1.7 %; Immature Granulocytes Absolute 0.22 #; Lymphocytes # 0.6 10*3/uL (1.4-4.0); Lymphocytes % 4.8 % (21.2-54.2); Mean Corpuscular HGB Conc 33.5 GM/DL (32-36); Mean Corpuscular Volume 95.4 FL (87-102); Mean Platelet Volume 10.6 FL (9.6-12.0); Monocytes # 0.5 10*3/uL (0.11-0.8); Monocytes % 3.5 % (1.7-12.7); NRBC # 0.03 10*3/uL; Neutrophils % 88.5 % (38.7-73.9); Platelet Count 167 T/CUMM (130-400); Red Blood Count 2.19 MC/CUMM (3.8-5.5); Red Cell Distribution Width 14.3 % (9.3-17.3)
[2022-11-01 05:52] LABS: Band Neutrophils 1 % (0-10); Hypochromia Slight; Lymphocytes 2 % (20-55); Microcytosis Slight; Nucleated Red Blood Cells 1 /100 WBC (0-5); Platelet Estimate Adequate; Total Cells Counted 100
[2022-11-01 05:58] LABS: Alanine Aminotransferase 74 U/L (16-61); Albumin 2.3 G/DL (3.4-5.0); Alkaline Phosphatase 39 U/L (45-117); Aspartate Amino Transferase 53 U/L (0-37); Bilirubin,Total < 0.39 MG/DL (0.20-1.00); Blood Urea Nitrogen 107 MG/DL (7-18); Calcium 7.9 MG/DL (8.5-10.1); Carbon Dioxide 19 MMOL/L (21-32); Chloride 113 MMOL/L (98-107); Glucose 180 MG/DL (74-106); Osmolality,Calculated 319.3 MOS/KG (273-304); Sodium 141 MMOL/L (136-145); Total Protein 5.1 G/DL (6.4-8.2)
[2022-11-01] MEDS ORDERED: SODIUM CHLORIDE 0.9% 1,000 ML IV PRN (07:55)
[2022-11-01] MEDS: INSULIN REGULAR 100 UNIT/ML SUBCUT SCH ×4 (08:19→21:22)
[2022-11-01] MEDS ORDERED: ZINC OXIDE PASTE 113 GM TUBE TOP PRN (14:08)
[2022-11-01] MEDS ORDERED: propofoL 200 MG/20 ML VIAL IV ONE (14:29)
[2022-11-01] MEDS ORDERED: LIDOCAINE 2% 5 ML VIAL ONE (14:29)
[2022-11-01] MEDS: SODIUM ZIRCONIUM CYCLOSILICATE 10 GM PACK PO SCH (17:12)
[2022-11-01] MEDS: LEVOTHYROXINE 75 MCG TABLET PO SCH (17:12)
[2022-11-01] MEDS: PANTOPRAZOLE 40 MG VIAL IV SCH ×2 (17:12→21:17)
[2022-11-01] MEDS: SODIUM HYPOCHLORITE 0.25% IRRIG 473 ML BOTTLE TOP SCH (17:13)
[2022-11-01] MEDS ORDERED: traZODone 50 MG TABLET PO PRN (17:34)
[2022-11-01 18:31] LABS: Hematocrit 28.1 VOL% (42.0-52.0); Hemoglobin 9.3 GM/DL (14.0-18.0)
[2022-11-01] MEDS: MELATONIN 3 MG TABLET PO PRN (21:17)
[2022-11-01] MEDS: METOPROLOL SUCCINATE XL 50 MG TABLET PO SCH (21:17)
[2022-11-02] MEDS: SODIUM BICARB INJ 50 MEQ in SODIUM CHLORIDE 0.45% 1,000 ML IV SCH ×3 (00:09→12:41)
[2022-11-02 05:50] LABS: Basophils % 0.1 % (0.0-0.8); Eosinophils # 0.2 10*3/uL (0.0-0.87); Eosinophils % 1.5 % (0.00-10.9); Hematocrit 26.2 VOL% (42.0-52.0); Hemoglobin 8.8 GM/DL (14.0-18.0); Immature Granulocytes % 1.6 %; Immature Granulocytes Absolute 0.17 #; Lymphocytes # 0.4 10*3/uL (1.4-4.0); Mean Corpuscular HGB Conc 33.6 GM/DL (32-36); Mean Corpuscular Volume 93.9 FL (87-102); Mean Platelet Volume 10.3 FL (9.6-12.0); Monocytes # 0.5 10*3/uL (0.11-0.8); Monocytes % 4.7 % (1.7-12.7); NRBC # 0.02 10*3/uL; Neutrophils % 88.1 % (38.7-73.9); Platelet Count 159 T/CUMM (130-400); Red Blood Count 2.79 MC/CUMM (3.8-5.5); Red Cell Distribution Width 14.9 % (9.3-17.3); White Blood Count 10.7 T/CUMM (4-12)
[2022-11-02 06:13] LABS: Eosinophils 2 % (0-10); Lymphocytes 1 % (20-55); Microcytosis 1+; Ovalocytes Slight; Polychromasia Slight; Total Cells Counted 100
[2022-11-02 06:14] LABS: Hypochromia Slight; Platelet Estimate Adequate
[2022-11-02 06:31] LABS: Albumin 2.4 G/DL (3.4-5.0); Bilirubin,Total 0.5 MG/DL (0.20-1.00); Osmolality,Calculated 306.3 MOS/KG (273-304); Potassium 4.5 MMOL/L (3.5-5.1); Total Protein 5.1 G/DL (6.4-8.2)
[2022-11-02] MEDS: SODIUM ZIRCONIUM CYCLOSILICATE 10 GM PACK PO SCH (08:06)
[2022-11-02] MEDS: SODIUM HYPOCHLORITE 0.25% IRRIG 473 ML BOTTLE TOP SCH (08:07)
[2022-11-02] MEDS: PANTOPRAZOLE 40 MG VIAL IV SCH ×2 (08:07→22:11)
[2022-11-02] MEDS: LEVOTHYROXINE 75 MCG TABLET PO SCH (08:08)
[2022-11-02] MEDS: INSULIN REGULAR 100 UNIT/ML SUBCUT SCH ×4 (08:16→22:13)
[2022-11-02] MEDS: MELATONIN 3 MG TABLET PO PRN (22:11)
[2022-11-02] MEDS: METOPROLOL SUCCINATE XL 50 MG TABLET PO SCH (22:11)
[2022-11-03] MEDS: SODIUM BICARB INJ 50 MEQ in SODIUM CHLORIDE 0.45% 1,000 ML IV SCH (02:00)
[2022-11-03 05:48] LABS: Basophils % 0.1 % (0.0-0.8); Eosinophils # 0.1 10*3/uL (0.0-0.87); Eosinophils % 1.7 % (0.00-10.9); Hematocrit 24.5 VOL% (42.0-52.0); Hemoglobin 8.4 GM/DL (14.0-18.0); Immature Granulocytes % 1.1 %; Immature Granulocytes Absolute 0.09 #; Lymphocytes # 0.4 10*3/uL (1.4-4.0); Lymphocytes % 4.8 % (21.2-54.2); Mean Corpuscular HGB Conc 34.3 GM/DL (32-36); Mean Corpuscular Volume 93.9 FL (87-102); Mean Platelet Volume 10.2 FL (9.6-12.0); Monocytes # 0.4 10*3/uL (0.11-0.8); Monocytes % 4.6 % (1.7-12.7); Neutrophils % 87.7 % (38.7-73.9); Platelet Count 151 T/CUMM (130-400); Red Blood Count 2.61 MC/CUMM (3.8-5.5); Red Cell Distribution Width 14.7 % (9.3-17.3); White Blood Count 8.5 T/CUMM (4-12)
[2022-11-03 06:27] LABS: Albumin 2.2 G/DL (3.4-5.0); Bilirubin,Total 0.6 MG/DL (0.20-1.00); Calcium 7.5 MG/DL (8.5-10.1); Osmolality,Calculated 292.7 MOS/KG (273-304); Potassium 3.9 MMOL/L (3.5-5.1); Total Protein 5.1 G/DL (6.4-8.2)
[2022-11-03 06:28] LABS: Eosinophils 2 % (0-10); Hypochromia Slight; Lymphocytes 8 % (20-55); Platelet Estimate Adequate; Total Cells Counted 100
[2022-11-03] MEDS: LEVOTHYROXINE 75 MCG TABLET PO SCH (08:21)
[2022-11-03] MEDS: PANTOPRAZOLE 40 MG VIAL IV SCH (08:21)
[2022-11-03] MEDS: SODIUM ZIRCONIUM CYCLOSILICATE 10 GM PACK PO SCH (08:21)
[2022-11-03] MEDS: SODIUM HYPOCHLORITE 0.25% IRRIG 473 ML BOTTLE TOP SCH (08:21)
[2022-11-03] MEDS: INSULIN REGULAR 100 UNIT/ML SUBCUT SCH ×2 (08:21→12:16)
[2022-11-03 12:10] VITALS: BP 103/47
== END 2022-11-03 14:23 | disposition home or self-care (01) | DRG 378 ==
LOC: N.ED 10:44 → N.EDINP 13:35 → SUATTDRO 13:35 → N.EDINP 15:36 → N.2E 15:47
PROVIDERS: ADMIT Hospitalist; ATTEND Hospitalist

== ENCOUNTER 2022-11-15 16:14 | Inpatient (IN) ==
[2022-11-15] MEDS ORDERED: MORPHINE 2 MG/1 ML SYRINGE IV PRN (20:44)
[2022-11-15] MEDS ORDERED: hydrALAZINE 20 MG/1 ML VIAL IV PRN (20:44)
[2022-11-15] MEDS ORDERED: ACETAMINOPHEN 325 MG TABLET PO PRN (20:44)
[2022-11-15] MEDS ORDERED: ONDANSETRON 4 MG/2 ML VIAL IV PRN (20:44)
[2022-11-15] MEDS ORDERED: VANCOMYCIN INJ 1,000 MG in SODIUM CHLORIDE 0.9% 250 ML IV ONE (20:48)
[2022-11-15] MEDS ORDERED: SODIUM CHLORIDE 0.9% 1,000 ML IV PRN (20:50)
[2022-11-16] MEDS: PIPERACILLIN/TAZOBACTAM 3,375 MG in SODIUM CHLORIDE 0.9% 100 ML IV SCH ×4 (00:15→21:10)
[2022-11-16] MEDS: METOPROLOL SUCCINATE XL 50 MG TABLET PO SCH ×2 (00:15→21:10)
[2022-11-16] MEDS: SODIUM CHLORIDE 0.9% 1,000 ML IV SCH ×2 (00:15→13:10)
[2022-11-16 00:37] LABS: Bilirubin,Urine Negative (Negative); Blood, Urine Trace mg/dL (Negative); Glucose,Urine (UA) >=1000 mg/dL (Negative); Ketones,Urine Negative (Negative); Nitrite,Urine Negative (Negative); Protein,Urine Negative (Negative); RBC,Urine 1 /HPF (0-4); Urine Appearance Clear (Clear); Urine Color Yellow (Yellow); Urine Specific Gravity 1.015 (1.001-1.035); Urine Urobilinogen 0.2 eU/dL (<2.0); Urine pH 6.5 (4.5-8.0)
[2022-11-16] MEDS: INSULIN LISPRO 100 UNIT/ML SUBCUT SCH ×4 (02:46→16:54)
[2022-11-16 05:46] LABS: Basophils % 0.6 % (0.0-0.8); Eosinophils # 0.4 10*3/uL (0.0-0.87); Eosinophils % 6.3 % (0.00-10.9); Hemoglobin 8.5 GM/DL (14.0-18.0); Immature Granulocytes % 1.2 %; Immature Granulocytes Absolute 0.08 #; Lymphocytes # 0.8 10*3/uL (1.4-4.0); Lymphocytes % 11.8 % (21.2-54.2); Mean Corpuscular HGB Conc 30.4 GM/DL (32-36); Mean Corpuscular Volume 100.7 FL (87-102); Mean Platelet Volume 9.7 FL (9.6-12.0); Monocytes # 0.4 10*3/uL (0.11-0.8); Monocytes % 5.6 % (1.7-12.7); Neutrophils % 74.5 % (38.7-73.9); Platelet Count 331 T/CUMM (130-400); Red Blood Count 2.78 MC/CUMM (3.8-5.5); Red Cell Distribution Width 14.8 % (9.3-17.3); White Blood Count 6.8 T/CUMM (4-12)
[2022-11-16 06:10] LABS: Alanine Aminotransferase 107 U/L (16-61); Albumin 2.4 G/DL (3.4-5.0); Alkaline Phosphatase 101 U/L (45-117); Aspartate Amino Transferase 63 U/L (0-37); Bilirubin,Total < 0.39 MG/DL (0.20-1.00); Blood Urea Nitrogen 29 MG/DL (7-18); Calcium 8.4 MG/DL (8.5-10.1); Carbon Dioxide 25 MMOL/L (21-32); Chloride 106 MMOL/L (98-107); Cholesterol 67 MG/DL (50-200); Glucose 132 MG/DL (74-106); HDL Cholesterol 23 MG/DL (40-60); Osmolality,Calculated 282.7 MOS/KG (273-304); Potassium 5.1 MMOL/L (3.5-5.1); Risk Ratio 2.91; Sodium 138 MMOL/L (136-145); Total Protein 6.6 G/DL (6.4-8.2); Triglycerides 70 MG/DL (2-150)
[2022-11-16 06:14] LABS: 25 Hydroxy Vitamin D Total 34.1 NG/ML (30-100); Folate 4.89 NG/ML (5.38-24.0)
[2022-11-16 06:23] LABS: % Iron Saturation 25.8 % (18-50)
[2022-11-16] MEDS ORDERED: GLUCAGON 1 MG VIAL IM PRN (08:23)
[2022-11-16] MEDS ORDERED: DEXTROSE 10% 250 ML BAG IV PRN (08:23)
[2022-11-16] MEDS: PANTOPRAZOLE 40 MG TABLET PO SCH (09:49)
[2022-11-16] MEDS ORDERED: VANCOMYCIN INJ 1,750 MG in SODIUM CHLORIDE 0.9% 500 ML IV SCH (15:00)
[2022-11-16] MEDS: ZALEPLON 5 MG CAPSULE PO PRN (21:10)
[2022-11-17] MEDS: INSULIN LISPRO 100 UNIT/ML SUBCUT SCH ×5 (01:02→20:25)
[2022-11-17 05:37] LABS: Basophils # 0.1 10*3/uL (0.0-0.2); Basophils % 0.8 % (0.0-0.8); Eosinophils # 0.5 10*3/uL (0.0-0.87); Eosinophils % 6.9 % (0.00-10.9); Hematocrit 26.4 VOL% (42.0-52.0); Immature Granulocytes % 1.5 %; Lymphocytes # 0.7 10*3/uL (1.4-4.0); Lymphocytes % 10.2 % (21.2-54.2); Mean Corpuscular HGB Conc 30.3 GM/DL (32-36); Mean Corpuscular Volume 101.9 FL (87-102); Mean Platelet Volume 10.3 FL (9.6-12.0); Monocytes # 0.5 10*3/uL (0.11-0.8); Monocytes % 7.2 % (1.7-12.7); Neutrophils % 73.4 % (38.7-73.9); Platelet Count 274 T/CUMM (130-400); Red Blood Count 2.59 MC/CUMM (3.8-5.5); Red Cell Distribution Width 14.8 % (9.3-17.3); White Blood Count 6.7 T/CUMM (4-12)
[2022-11-17 06:03] LABS: Calcium 8.2 MG/DL (8.5-10.1); Osmolality,Calculated 282.7 MOS/KG (273-304); Potassium 5.1 MMOL/L (3.5-5.1)
[2022-11-17] MEDS: PIPERACILLIN/TAZOBACTAM 3,375 MG in SODIUM CHLORIDE 0.9% 100 ML IV SCH (06:15)
[2022-11-17] MEDS: LEVOTHYROXINE 75 MCG TABLET PO SCH (06:15)
[2022-11-17] MEDS: PANTOPRAZOLE 40 MG TABLET PO SCH (08:51)
[2022-11-17] MEDS ORDERED: POLYETHYLENE GLYCOL POWDER 17 GM PACK PO PRN (12:25)
[2022-11-17] MEDS: SODIUM CHLORIDE 0.9% 1,000 ML IV SCH ×3 (12:52→22:45)
[2022-11-17] MEDS: METOPROLOL SUCCINATE XL 50 MG TABLET PO SCH (20:15)
[2022-11-17] MEDS: ZALEPLON 5 MG CAPSULE PO PRN (20:25)
[2022-11-18 05:09] LABS: Basophils % 0.5 % (0.0-0.8); Eosinophils # 0.4 10*3/uL (0.0-0.87); Eosinophils % 5.5 % (0.00-10.9); Hematocrit 25.9 VOL% (42.0-52.0); Hemoglobin 7.8 GM/DL (14.0-18.0); Immature Granulocytes % 1.2 %; Immature Granulocytes Absolute 0.08 #; Lymphocytes # 0.7 10*3/uL (1.4-4.0); Lymphocytes % 10.7 % (21.2-54.2); Mean Corpuscular HGB Conc 30.1 GM/DL (32-36); Mean Corpuscular Volume 100.4 FL (87-102); Mean Platelet Volume 9.4 FL (9.6-12.0); Monocytes # 0.4 10*3/uL (0.11-0.8); Monocytes % 6.7 % (1.7-12.7); Neutrophils % 75.4 % (38.7-73.9); Platelet Count 266 T/CUMM (130-400); Red Blood Count 2.58 MC/CUMM (3.8-5.5); Red Cell Distribution Width 14.6 % (9.3-17.3); White Blood Count 6.5 T/CUMM (4-12)
[2022-11-18] MEDS: LEVOTHYROXINE 75 MCG TABLET PO SCH (05:20)
[2022-11-18 05:31] LABS: Calcium 8.2 MG/DL (8.5-10.1); Osmolality,Calculated 285.4 MOS/KG (273-304); Potassium 5.1 MMOL/L (3.5-5.1)
[2022-11-18 07:01] VITALS: BP 136/72
[2022-11-18] MEDS: INSULIN LISPRO 100 UNIT/ML SUBCUT SCH ×2 (07:49→10:47)
[2022-11-18] MEDS: PANTOPRAZOLE 40 MG TABLET PO SCH (09:01)
[2022-11-18] MEDS: SODIUM CHLORIDE 0.9% 1,000 ML IV SCH (11:48)
== END 2022-11-18 13:05 | disposition home health service (06) | DRG 638 ==
LOC: N.3E → SUATTDRO 18:40 → OBSVTOIN 18:40
PROVIDERS: ADMIT Internal Medicine; ATTEND Emergency Medicine